=== PATIENT | male | born 1960 | race Caucasian/White ===

== ENCOUNTER → 2017-02-15 | Outpatient (CLI) | payer OTHER ==
[2017-02-15 13:02] LABS: ESTIMATED AVERAGE GLUCOSE 163 mg/dl; HA1C FLAG Normal (Normal)
[2017-02-15 13:25] LABS: ALT/SGPT 73 U/L (12-78); BLOOD UREA NITROGEN 10 mg/dl (7-18); BUN/CREATININE RATIO 11.1 (10-20); CALCIUM 8.7 mg/dl (8.5-10.1); CARBON DIOXIDE 27 mmol/L (21-32); CHLORIDE 107 mmol/L (98-107); CHOLESTEROL 204 mg/dl (0-200); CREATININE 0.89 mg/dl (0.60-1.40); GLUCOSE 148 mg/dl (70-99); POTASSIUM 4.2 mmol/L (3.5-5.1); SODIUM 141 mmol/L (136-145); TRIGLYCERIDES 300 mg/dl (0-150); VERY LOW DENSITY LIPOPROT CALC 60 mg/dl
[2017-02-15 13:29] LABS: ALB/GLOB RATIO 1.1 (0.9-2); ALKALINE PHOSPHATASE 55 U/L (45-117); AST/SGOT 59 U/L (15-37); CHOLESTEROL/HDL RATIO 7.8; HDL CHOLESTEROL 26 mg/dl; LDL CHOLESTEROL CALCULATED 118 mg/dl
== END | disposition home or self-care (01) ==
LOC: C.LABPVFM 07:34
PROVIDERS: ATTEND Family Medicine
DX: E78.5 Hyperlipidemia, unspecified (principal); I10 Essential (primary) hypertension; E11.9 Type 2 diabetes mellitus without complications

== ENCOUNTER 2023-01-12 07:39 | Inpatient (IN) ==
--- NOTE | 2023-01-01 11:27 | Anesthesiology Consultation ---
Date of Service January 01, 2023 Assessment & Plan (1) Encounter for pre-operative examination: Chart Review Chart Review: Acceptable Risk for Surgery and Patient NOT seen in Pre Admission Testing - Check BSG AM DOS -COVID screening: Per PAT nursing assessment on 01/01/23. No known COVID-19 positive contacts or current COVID-19 related symptoms. Travel screen negative. Patient vaccinated for Covid. At surgeon discretion if preop Covid testing being done. History Surgery Operation Date: 01/12/23 10:00 Proposed Procedures p Laparoscopic Sigmoid Colon Resection, Repair Umbilical Hernia - Jono Wilder, Height/Weight Height: 5 ft 10 in Weight: 90.718 kg Allergies Allergy/AdvReac Type Severity Reaction Status Date / Time atorvastatin [From Lipitor] Allergy Unknown LIVER ISSUE Verified 01/01/23 10:26 Medications Home Medications Medication Instructions Recorded Confirmed Last Taken blood-glucose meter (OneTouch #1 ea 04/21/22 12/30/22 Unknown Ultra2 Meter kit) pen needle, diabetic 32 gauge x #100 ea 07/14/22 12/30/22 Unknown 5/32" (BD Ultra-Fine Nancy Pen Needle) blood sugar diagnostic (OneTouch #100 ea 10/19/22 12/30/22 Unknown Ultra Test strips) glimepiride 4 mg tablet 4 mg PO QAM #90 tabs 10/19/22 01/01/23 12/20/22 lancets 33 gauge (OneTouch Delica #100 ea 10/19/22 12/30/22 Unknown Plus Lancet) metformin 1,000 mg tablet 1,000 mg PO BID #180 tabs 10/19/22 01/01/23 12/21/22 triamcinolone acetonide 0.1 % 1 applic topical BID PRN rash #80 10/19/22 01/01/23 Unknown topical cream grams ferrous sulfate 325 mg (65 mg 325 mg PO BID #180 tabs 10/29/22 01/01/23 12/15/22 iron) tablet sodium sul 1.479 gram-potas ch See Rx Instructions PO .COMPLEX 12/07/22 12/30/22 12/22/22 0.188 gram-magnes sul 0.225 gram #24 tabs tablet (Sutab) aspirin 81 mg capsule 81 mg PO QPM 12/15/22 01/01/23 12/15/22 docusate sodium 100 mg tablet 100 mg PO BID 12/15/22 01/01/23 12/15/22 (Stool Softener) cholecalciferol (vitamin D3) 25 25 mcg PO UD 01/01/23 01/01/23 Unknown mcg (1,000 unit) capsule (Vitamin D3) cyanocobalamin (vitamin B-12) 1,000 mcg PO QAM 01/01/23 01/01/23 Unknown 1,000 mcg tablet (Vitamin B-12) levothyroxine 25 mcg tablet 25 mcg PO QAM 01/01/23 01/01/23 Unknown (Synthroid) lisinopril 5 mg tablet 5 mg PO QAM 01/01/23 01/01/23 Unknown omeprazole 20 mg capsule,delayed 20 mg PO QAM 01/01/23 01/01/23 Unknown release pioglitazone 30 mg tablet 30 mg PO QAM 01/01/23 01/01/23 Unknown simvastatin 20 mg tablet 20 mg PO QPM 01/01/23 01/01/23 Unknown Past Medical History Medical History (Updated 01/01/23 @ 11:34 by Nadine Hinton PA-C) Chronic reflux esophagitis Colon cancer Recently diagnosed - reason for upcoming procedure Dyslipidemia HTN (hypertension) Hypothyroid Iron deficiency anemia iron infusion 11/26/2022 Nicotine dependence Type 2 diabetes mellitus Last A1C 5.1 in 10/2022 Past Family History Family History Father Coronary atherosclerosis Cardiovascular disease Heart disease Myocardial infarction Brother Coronary atherosclerosis Cardiovascular disease Myocardial infarction Lung cancer Cancer Throat cancer Mother Diabetes Cancer Brother Cancer Denies family history of Ovarian cancer Prostate cancer Breast cancer Colorectal cancer Past Surgical History Surgical History H/O colonoscopy History of endoscopy Social History Smoking Status: Former smoker tobacco type: smokeless tobacco Do You Dip or Chew Tobacco: Yes (1 CAN PER WEEK AVERAGE/ADVISED NPO BY NURSING) Smoking End Date: A TEENAGER THEN QUIT Hx Alcohol Use: No Hx Substance Use: No substance use type: does not use Lab Results Anesthesia Preop Results Results Anesthesia Widget: WBC 4.08 K/ul (4.8-10.8) L 12/29/22 Hgb 13.6 g/dl (14.0-18.0) L 12/29/22 Hct 41.9 % (42.0-52.0) L 12/29/22 Plt 117 K/uL (130-400) L 12/29/22 Na 141 mmol/L (136-145) 12/29/22 K 4.2 mmol/L (3.5-5.1) 12/29/22 Cl 106 mmol/L (98-107) 12/29/22 CO2 31 mmol/L (21-32) 12/29/22 BUN 14 mg/dl (6-23) 12/29/22 Creat 0.87 mg/dl (0.6-1.4) 12/29/22 Glucose Level 110 mg/dl (70-99(Fasting)) H 12/29/22 PT 11.7 Seconds (9.0-12.0) 11/04/22 PTT 30.7 Seconds (21.0-31.0) 11/04/22 INR 1.1 (0.9-1.1) 11/04/22 Testing Laboratory Results - Mild pancytopenia- stable from previous Electrocardiogram Date: 12/30/22 Findings: + NSR @ (64bpm ) Normal EKG per cardio Other Testing Chest CT 12/28/22= No evidence of metastatic disease within the chest. There is no pericardial effusion. No pneumothorax or pleural effusion is present. There is no consolidation to suggest pneumonia. Several small calcified nodules within the lungs are benign. No suspicious pulmonary nodules are present
[~2023-01-12 07:39] MED LIST: HEPARIN SOD 5,000 UNIT/0.5 ML VIAL SQ SCH; LR 15ML/HR IV SCH; ceFAZolin 2000MG 2,000 MG/15 ML SYR IV SCH
[2023-01-12] MEDS ORDERED: PROPOFOL IV EMULSION 10 MG/ML 20 ML VIAL IV ONE (08:04)
[2023-01-12] MEDS ORDERED: DEXAMETHASONE SOD INJ 4 MG/ML VIAL ONE ×2 (08:04→08:10)
[2023-01-12] MEDS ORDERED: ONDANSETRON INJ 2 MG/ML 2 ML VIAL ONE (08:04)
[2023-01-12] MEDS ORDERED: LIDOCAINE 2% 2 ML VIAL/AMP(20MG/ML) INFIL ONE (08:04)
[2023-01-12] MEDS ORDERED: MIDAZOLAM HCL 1 MG/ML 2ML VIAL ONE (08:05)
[2023-01-12] MEDS ORDERED: SUGAMMADEX SODIUM 200 MG/2 ML VIAL IV ONE (08:05)
[2023-01-12] MEDS ORDERED: ROCURONIUM BROMIDE 10 MG/ML 5 ML VIAL IV ONE ×6 (08:05→08:50)
[2023-01-12] MEDS ORDERED: fentaNYL citrate PF 100 MCG/2 ML VIAL ONE ×2 (08:05→10:34)
[2023-01-12] MEDS ORDERED: BUPIVACAINE/EPINEPHRINE 0.5% MPF 1:200,000 30 ML VIAL ONE (09:16)
[2023-01-12] MEDS ORDERED: SCOPOLAMINE 1 MG TDSY TD ONE ×2 (09:50→09:51)
[2023-01-12] MEDS ORDERED: ATROPINE SULFATE 0.1 MG/ML 10ML SYR IV PRN (09:52)
[2023-01-12] MEDS ORDERED: KETOROLAC 30 MG/ML VIAL IV PRN (09:52)
[2023-01-12] MEDS ORDERED: ONDANSETRON INJ 2 MG/ML 2 ML VIAL IV PRN (09:52)
[2023-01-12] MEDS ORDERED: PROMETHAZINE HCL 6.25 MG in SODIUM CHLORIDE 0.9% 50 ML IV PRN (09:52)
--- NOTE | 2023-01-12 10:01 | History & Physical Bridge Note ---
Date of Service January 12, 2023 History & Physical Bridge Note I have examined the patient, reviewed the History & Physical and in the interval since the performance of the History & Physical I have noted the following changes of clinical significance: no changes noted
[2023-01-12] MEDS ORDERED: KETAMINE 50 MG/5 ML SYRINGE ONE (10:33)
[2023-01-12] MEDS ORDERED: MoRPHine SULFATE 2 MG/ML CARP ONE (12:42)
--- NOTE | 2023-01-12 13:04 | Operative Report ---
PG Post Operative Report Pre & Post Diagnosis Operation Date: 01/12/23 10:00 Pre-Op Diagnosis: Colon Cancer, Umbilical Hernia Post-Op Diagnosis: Colon Cancer, Umbilical Hernia I identified the patient and participated in the time-out.: Yes Procedure Operation Date: 01/12/23 10:00 Actual Procedures p Laparoscopic Sigmoid Colon Resection, Repair Umbilical Hernia(Not Applicable) - Jono Wilder DO Surgeon Jono Wilder DO Senior Director Creative Services Tamika'MI chambers Estimated Blood Loss 200 Findings Consistent with Post-Op Diagnosis Specimens sigmoid colon Description of Procedure After informed consent was obtained the patient was taken to the operating room and placed in supine position. After successful intubation a Grey catheter was placed and the patient was placed in a low lithotomy position. Both arms were tucked. The abdomen was shaved and sterilely prepped and draped in usual fashion. I began by making a curvilinear infraumbilical incision with a 15 blade scalpel. This was carried down through the soft tissue using cautery. The fascia was skeletonized. A Sonal clamp was used to come around the superior aspect of the umbilicus. The umbilical stalk was detached exposing a 1.5 cm hernia defect. 0 Vicryl stay sutures were placed on either side of the fascial defect. Peritoneum was elevated with hemostats and incised under direct vision using Metzenbaum scissor. A finger sweep was performed. A 12 mm Cunningham trocar was placed and the abdomen was insufflated to 18 mmHg. Laparoscope was inserted and the abdomen examined in 360 degrees. No gross abnormalities were identified. A right lower quadrant 12 mm trocar which would later be converted to a 15 mm trocar was placed as well as a right mid abdominal 5 mm trocar and eventually a left lower quadrant 5 mm trocar. The patient was placed in steep Trendelenburg position. I was able to readily identify the tattoo markings placed by GI. I began by using the harmonic scalpel to divide the white line of Toldt. We carried this up almost to the splenic flexure and inferiorly over the pelvic peritoneal reflection. Once I had fully mobilized the sigmoid colon I was then able to make a small window in the mesentery 4 to 5 cm distal to the distal-most tattoo aleah. BISMARK 60 mm black cartridge stapler was used to transect the rectosigmoid colon. I then used the harmonic scalpel to take down the mesentery staying as low as possible to incorporate as many lymph nodes as possible. We carried this up to well above the proximal most tattoo aleah. We t hen extended the left lower quadrant incision including the fascia and delivered the specimen out through it. A bowel clamp was placed on viable bowel well proximal to the mass itself. The bowel was divided and passed off to a back table. I would later check the specimen to ensure that we had adequate margins in both directions which we did. We marked the distalmost aspect of the specimen with a silk stitch. We then hand sewed 2-0 nylon for a pursestring. We used sizers to estimate the size of the lumen of the colon and placed a 31 mm anvil and secured it using the pursestring. This was then placed the colon back into the abdominal cavity. At this point we changed our gloves. I closed the fascial defect using 0 PDS in running fashion. I then re-insufflated the abdomen. The anvil and the colon laid nicely over the pelvic brim with no tension. We used sizers to come in through the rectum into the stump. Eventually we placed the circular handle in through the rectum into the stump as well. The spike was deployed anterior to the staple line. The anvil was connected to the handle and they were secured together and fired creating a circular anastomosis. Both donuts were intact. We sent the distal 1 as additional distal margin. I then re-insufflated the anastomosis under water to ensure it was airtight. There was no evidence of any leaks. We thoroughly irrigated the pelvis. There was adequate hemostasis. A 10 flat Oscar-Payne drain was placed into the pelvis and brought out through one of the trocar sites and secured to the skin using 0 PDS. Final look around the abdomen showed no other abnormalities. The trocars were all removed and the abdomen desufflated. The umbilical hernia was repaired using #1 Ethibond in simple erupted fashion. The umbilical stalk was reattached using 0 Vicryl. The wounds were all thoroughly irrigated. The larger wound was closed using 3-0 Vicryl forvdeep layers and 4 Monocryl for skin. The smaller trocar sites were closed using 4-0 Monocryl. Marcaine with epinephrine were injected around them for postoperative analgesia. A drain sponge was placed and Dermabond glue usedon the trocar sites and benzoin /Steri-Strips on the larger incision followed by gauze and tape. The patient was awakened extubated and transferred to recovery in stable condition. My nurse practitioner was present through the entire case and was instrumental in providing exposure running the camera assisting with the anastomosis wound closure and dressing placement. I attest to the content of the Intraoperative Record and any orders documented therein. Any exceptions are noted below.
[2023-01-12] MEDS: HYDROmorphone INJ 1 MG/ML SYRINGE IV PRN ×2 (13:11→13:16)
[2023-01-12] MEDS ORDERED: SODIUM CHLORIDE 0.9% 50 ML BAG ONE (13:27)
[2023-01-12] MEDS ORDERED: PROMETHAZINE HCL INJ 25 MG/ML 1 ML VIAL ONE (13:27)
--- NOTE | 2023-01-12 13:52 | Anesthesiology Progress Note ---
Date of Service January 12, 2023 Anesthesia Post Procedure Vital Signs Vital Signs: Temp Pulse Pulse Resp BP Pulse Ox O2 Del Method 01/12/23 13:49 84 12 119/73 98 Nasal Cannula 01/12/23 13:40 37 C 82 12 117/70 99 Nasal Cannula 01/12/23 13:30 80 17 109/69 97 Nasal Cannula 01/12/23 13:20 78 15 121/55 L 99 Oxymask 01/12/23 13:10 90 17 132/74 99 Oxymask 01/12/23 13:00 36.3 C L 103 H 20 102/77 96 Oxymask 01/12/23 08:26 36.5 C 66 20 141/76 H 98 Room Air O2 Flow Rate 01/12/23 13:49 2 01/12/23 13:40 2 01/12/23 13:30 2 01/12/23 13:20 6 01/12/23 13:10 6 01/12/23 13:00 6 01/12/23 08:26 Pain Intensity Abdomen: Pain Intensity: 4 Transfer of Care Handoff Completed per policy Notes Mental Status: alert / awake / arousable Patient Amnestic to Procedure: Yes Nausea / Vomiting: adequately controlled Pain: adequately controlled Airway Patency, RR, SpO2: stable & adequate BP & HR: stable & adequate Hydration State: stable & adequate Anesthetic Complications: no major complications apparent
[2023-01-12] MEDS ORDERED: PROMETHAZINE HCL 12.5 MG in SODIUM CHLORIDE 0.9% 50 ML IV PRN (14:31)
[2023-01-12] MEDS ORDERED: MoRPHine SULFATE 4 MG/ML 1 ML CARP\\VIAL IV PRN (14:31)
[2023-01-12] MEDS ORDERED: PHARMACY GLYCEMIC MGMT CONSULT PRN (14:31)
[2023-01-12] MEDS: LACTATED RINGER'S 1,000 ML IV SCH ×2 (15:02→23:01)
[2023-01-12] MEDS ORDERED: FAMOTIDINE 20 MG in SYRINGE 3 ML IV PRN (15:11)
--- NOTE | 2023-01-12 15:13 | Hospitalist Consultation ---
Date of Consultation January 12, 2023 Assessment & Plan (1) Status post laparoscopic-assisted sigmoidectomy: -Perioperative abx, DVT PPX, pain control, and IV fluids per the primary team -Patient is currently stable pos-top -Agree with IV fluids while NPO for hydration -No signs of acute infection at this time -Agree with am labs tomorrow, we will review -Adding prn IV famotidine daily for indigestion and stress ulcer ppx -Thank you for allowing us to participate in the care of this patient, feel free to reach out with any questions or concerns -Medicine will continue to follow (2) HTN (hypertension): -Currently stable -Agree with holding lisinopril for now to prevent hypotension -Can resume when hemodynamically stable and if renal function is stable (3) Colon cancer: -Reason for sigmoidectomy today (4) H/O thrombocytopenia: -Has been ongoing for 20 + years, follows with hematology -No signs of active bleeding -Follow am CBC (5) Diabetes mellitus type 2, uncontrolled: -Pharmacy glycemic control consult already placed with orders in -Continue to follow Pharmacy's recommendations (6) Hypothyroid: -Continue levothyroxine Plan The patient was discussed with Dr. Tompkins at the time of the consult Supervising Physician Co-Signing Physician Notes Patient seen and examined, chart reviewed, case discussed with Serge and I agree with the assessment and plan as above except as otherwise noted Labs and images reviewed Lillie is a 62-year-old male s/p lap assisted sigmoidectomy with a past medical history of DM 2, hypothyroidism, anemia, pancytopenia, GERD who underwent surgical revision for a well differentiated adenocarcinoma. We are consulted for assist with postoperative management. At time bedside visit he is hemodynamically stable, has had transient mild hypotension but appears near euvolemic to slightly volume down. Lungs are clear, heart rate is regular. Agree with assessment and plan above including IV fluids, car prophylaxis, and continuing to hold antihypertensives at this time. Patient's pancytopenia is stable and at baseline, follow clinically for signs of bleeding. Do not recommend any type of threshold driven platelet transfusion at this time, no indication for blood transfusion at this time. Agree with assessment/plan by Serge Wilder above History of Present Illness Reason for Consultation: Post-op medical management Requesting Physician: Jono Wilder DO Attending Physician: Dr. Hawk Tompkins History of Present Illness Logan is a 62 year old male with a PMH significant for DM II, hypothyroidism, pancytopenia, iron deficiency anemia, and GERD who presented to the [facility] OR on 01/12 for scheduled Laparoscopic Sigmoid Colon Resection and Repair of Umbilical Hernia with Jono Wilder DO. Per review of the patient's vitals, he has been stable on 2L NC post-op and otherwise stable. Per the operative report, EBL was l isted as "200", anesthesia type was not listed, and there were no reported intraoperative complications. Per chart review, the patient underwent the sigmoid colon resection due to recent biopsy results of his colon mass diagnosed as "Well differentiated adenocarcinoma.". At the time of the exam the patient was sleeping comfortably in bed with his family sitting bedside. The patient wakes easily and states that his only complaint at this time is being tired. He did not take any medications this am prior to arriving. He is currently without abdominal pain at rest. He denies current fever, chills, chest pain, SOB, abd pain, nausea, vomiting, diarrhea. Please refer to Dr. Tompkins's attestation for any changes to the treatment plan Allergies Allergy/AdvReac Type Severity Reaction Status Date / Time atorvastatin [From Lipitor] Allergy Unknown LIVER ISSUE Verified 01/12/23 08:21 Home Medications Medication Instructions Recorded Confirmed Type blood-glucose meter (Nirvanixuch #1 ea 04/21/22 12/30/22 Rx Ultra2 Meter kit) pen needle, diabetic 32 gauge x #100 ea 07/14/22 12/30/22 Rx 5/32" (BD Ultra-Fine Nancy Pen Needle) glimepiride 4 mg tablet 4 mg PO QAM #90 tabs 10/19/22 01/12/23 Rx lancets 33 gauge (OneTouch Delica #100 ea 10/19/22 12/30/22 Rx Plus Lancet) metformin 1,000 mg tablet 1,000 mg PO BID #180 tabs 10/19/22 01/12/23 Rx triamcinolone acetonide 0.1 % 1 applic topical BID PRN rash #80 10/19/22 01/12/23 Rx topical cream grams ferrous sulfate 325 mg (65 mg 325 mg PO BID #180 tabs 10/29/22 01/12/23 Rx iron) tablet sodium sul 1.479 gram-potas ch See Rx Instructions PO .COMPLEX 12/07/22 01/12/23 Rx 0.188 gram-magnes sul 0.225 gram #24 tabs tablet (Sutab) aspirin 81 mg capsule 81 mg PO QPM 12/15/22 01/12/23 History cholecalciferol (vitamin D3) 25 25 mcg PO UD 01/01/23 01/12/23 History mcg (1,000 unit) capsule (Vitamin D3) cyanocobalamin (vitamin B-12) 1,000 mcg PO QAM 01/01/23 01/12/23 History 1,000 mcg tablet (Vitamin B-12) levothyroxine 25 mcg tablet 25 mcg PO QAM 01/01/23 01/12/23 History (Synthroid) lisinopril 5 mg tablet 5 mg PO QAM 01/01/23 01/12/23 History omeprazole 20 mg capsule,delayed 20 mg PO QAM 01/01/23 01/12/23 History release pioglitazone 30 mg tablet 30 mg PO QAM 01/01/23 01/12/23 History simvastatin 20 mg tablet 20 mg PO QPM 01/01/23 01/12/23 History blood sugar diagnostic (OneTouch #100 ea 01/06/23 Rx Ultra Test strips) oxycodone-acetaminophen 5 mg-325 1 - 2 tab PO .q4-6h PRN pain, for 01/15/23 Rx mg tablet (Percocet) initial therapy, max 6 tabs per day #15 tabs ciprofloxacin HCl 500 mg tablet 500 mg PO BID 4 days #8 tabs 01/19/23 Rx (Cipro) Patient History Medical History (Updated 01/12/23 @ 15:45 by Serge Wilder PA-C) Chronic reflux esophagitis Colon cancer Recently diagnosed - reason for upcoming procedure Dyslipidemia HTN (hypertension) Hypothyroid Iron deficiency anemia iron infusion 11/26/2022 Nicotine dependence Type 2 diabetes mellitus Last A1C 5.1 in 10/2022 Surgical History (Updated 01/13/23 @ 08:22 by Jono Wilder DO) H/O colonoscopy History of endoscopy S/P colon resection (01/12/23) Laparoscopic Sigmoid Colon Resection, Repair Umbilical Hernia(Not Applicable) - Jono Wilder DO Family History Father Coronary atherosclerosis Cardiovascular disease Heart disease Myocardial infarction Brother Coronary atherosclerosis Cardiovascular disease Myocardial infarction Lung cancer Cancer Throat cancer Mother Diabetes Cancer Brother Cancer Denies family history of Ovarian cancer Prostate cancer Breast cancer Colorectal cancer Social History (Updated 12/30/22 @ 09:30 by Mahsa Smith RN) Smoking Status: Former smoker Tobacco Type: Smokeless Tobacco (Dip or Chew) Age Started Using Tobacco: 18; Second Hand Exposure: Yes (in the past); Do You Dip or Chew Tobacco: Yes; Hx Alcohol Use: No Hx Substance Use: No Preferred Language: Japanese Communication Ability: Effective Visual Impairment: Limited Fibreglass Laminator Required: No Beliefs That Will Affect Care: None marital status: Current Living Situation: Spouse current occupational status: employed current occupation: Machine Shop Specialist How many Children do You have: 2 Feels Safe at Home: Yes Diet: diabetic caffeine: Yes (Diet soda and coffee ) Dental Care, Regularly: No Physical Activity Frequency: Daily Seatbelt Use: always Sunscreen Use: Yes Assistive Devices: Glasses Physical Exam Physical Exam: Physical Exam: General: In no acute distress, stated age, non-toxic appearing HEENT: Normocephalic, atraumatic, no scleral icterus, pupils around round, symmetrical, and reactive to light, dry mucus membranes, trachea midline, no thyromegaly Chest/Pulm: No respiratory distress, symmetrical chest expansion, clear breath sounds throughout Cardiac: RRR, no murmurs noted Abdomen: Mildly distended, surgical sites noted at the umbilicus and lower a bdomen appear intact and without signs of drainage, drain is in place and is without signs of infection,, hypoactive bowel sounds, soft, tender to palpation in the LLQ but otherwise non-tender : Grey cath is in place and draining clear, yellow urine Musculoskeletal: Symmetrical and without signs of acute trauma, upper and lower extremities with full ROM, no atrophy, spasticity, or flaccidity Extremities: Radial, dorsalis pedis, and posterior tibial pulses are intact and symmetrical, no edema noted in the BL LE's Skin: As described above Neuro: Alert and oriented to person, place, month, year, and president, no focal defects, no tremors noted Psych: Fatigued, No acute distress, calm and cooperative during the exam Results & Data Results & Data Vital Signs (Past 12 Hours) Vital Signs Temp Pulse Pulse Pulse Resp BP Pulse Ox 01/12/23 14:30 36.5 C 75 14 105/66 96 01/12/23 14:15 79 14 114/67 99 01/12/23 14:00 82 13 117/67 98 01/12/23 13:49 84 12 119/73 98 01/12/23 13:40 37 C 82 12 117/70 99 01/12/23 13:30 80 17 109/69 97 01/12/23 13:20 78 15 121/55 L 99 01/12/23 13:10 90 17 132/74 99 01/12/23 13:00 36.3 C L 103 H 20 102/77 96 01/12/23 08:26 36.5 C 66 20 141/76 H 98 O2 Del Method O2 Flow Rate 01/12/23 14:30 Nasal Cannula 2 01/12/23 14:15 Nasal Cannula 2 01/12/23 14:00 Nasal Cannula 2 01/12/23 13:49 Nasal Cannula 2 01/12/23 13:40 Nasal Cannula 2 01/12/23 13:30 Nasal Cannula 2 01/12/23 13:20 Oxymask 6 01/12/23 13:10 Oxymask 6 01/12/23 13:00 Oxymask 6 01/12/23 08:26 Room Air Laboratory Results Abnormal lab results 01/12/23 01/12/23 Range/Units 08:11 13:04 POC Glucose 105 H 129 H (70-99) mg/dl PG Care Time/CCT Total # of Minutes Spent Total Time Spent with Patient: Total time spent is greater than 50% in coordination of care (as documented) at patient's floor/unit and/or counseling patient: [place] [address] IN/OBS CONSULT LVL 4,60M Patient Type New Medical Decision Making Moderate Complexity Diagnoses Status post laparoscopic-assisted sigmoidectomy Z90.49 HTN (hypertension) I10 Colon cancer C18.9 H/O thrombocytopenia Z86.2 Diabetes mellitus type 2, uncontrolled E11.65 Hypothyroid E03.9
[2023-01-12] MEDS ORDERED: GLUCAGON FOR INJ 1 MG VIAL IM PRN (15:15)
[2023-01-12] MEDS ORDERED: GLUCOSE 40% GEL 15 GM TUBE PO PRN (15:15)
[2023-01-12] MEDS ORDERED: DEXTROSE 50% 50 ML SYRINGE IV PRN (15:15)
[2023-01-12] MEDS ORDERED: CARBOHYDRATES FOR HYPOGLYCEMIA PO PRN (15:15)
[2023-01-12] MEDS ORDERED: GLUCOSE 10 TAB/TUBE PO PRN (15:15)
--- NOTE | 2023-01-12 15:20 | Pharmacy Report ---
Pharmacy Glycemic Short Note 2 - Date of Service January 12, 2023 - Glycemic Short BSG Results (Last 24 hours): 01/12/23 01/12/23 08:11 13:04 POC Glucose 105 H 129 H OUTPATIENT ANTIDIABETIC REGIMEN: * Metformin 1000 mg PO BID * Glimepiride 4 mg PO AM * Pioglitazone 30 mg PO AM * HbA1c: 5.1% (10/14/22) ASSESSMENT: * 62 yo M admitted on 01/12/23 following a sigmoid colon resection and hernia repair. Pharmacy has been consulted to assist with inpatient glycemic management. Patient is a well controlled Type 2 diabetic as an outpatient. Please refer to outpatient regimen and most recent HbA1c above. * Preop BSG 105 mg/dL. Postop BSG is 129 mg/dL. * Received 12 mg of IV dexamethasone perioperatively. Currently NPO. * Will not order any basal insulin at this time given postop BSG and NPO status. Starting Novolog based on weight/stress of 2. PLAN FOR INPATIENT GLYCEMIC CONTROL: * Hold outpatient oral diabetes medications * Basal insulin * None * Bolus insulin * NovoLog per scale ACHS or Q6hrs while NPO * Goal Range: Low 110 mg/dL - High 140 mg/dL * Correction Factor: 25 mg/dL/unit * Nutritional / Prandial insulin per carb ratio of 1 unit per 8 grams CHO consumed
[2023-01-12] MEDS ORDERED: LANTUS PER UNIT CHARGE SC ONE (15:30)
[2023-01-12] MEDS: ACETAMINOPHEN 1,000 MG/100 ML VIAL IV SCH ×2 (15:46→23:01)
[2023-01-12] MEDS: CHECK SCOPOLAMINE PATCH PLACEMENT SCH (15:46)
[2023-01-12] MEDS ORDERED: INSULIN ASPART PER UNIT CHARGE SC SCH (16:30)
[2023-01-12] MEDS ORDERED: Nursing to Pharmacy Communication SCH (17:00)
[2023-01-12] MEDS: MoRPHine SULFATE 2 MG/ML CARP IV PRN (17:30)
[2023-01-12] MEDS: ONDANSETRON INJ 2 MG/ML 2 ML VIAL IV PRN (17:30)
[2023-01-12] MEDS ORDERED: ceFAZolin 2000MG 2,000 MG/15 ML SYR IV ONE (18:00)
[2023-01-12] MEDS: INSULIN ASPART PER UNIT CHARGE SC SCH (18:29)
[2023-01-13] MEDS: CHECK SCOPOLAMINE PATCH PLACEMENT SCH ×3 (00:05→15:17)
[2023-01-13] MEDS: INSULIN ASPART PER UNIT CHARGE SC SCH ×4 (00:08→18:10)
[2023-01-13] MEDS: MoRPHine SULFATE 2 MG/ML CARP IV PRN (05:59)
[2023-01-13] MEDS: ONDANSETRON INJ 2 MG/ML 2 ML VIAL IV PRN ×2 (05:59→13:21)
[2023-01-13] MEDS: LACTATED RINGER'S 1,000 ML IV SCH (06:05)
[2023-01-13] MEDS: ACETAMINOPHEN 1,000 MG/100 ML VIAL IV SCH ×3 (06:28→23:47)
[2023-01-13 07:59] LABS: Basophils # (auto) 0.03 K/uL (0-0.2); Basophils % (auto) 0.3 %; Eosinophils # (auto) 0.01 K/uL (0-0.50); Eosinophils % (auto) 0.1 %; Hematocrit (blood only) 36.7 % (42.0-52.0); Hemoglobin 12.1 g/dl (14.0-18.0); Immature Granulocytes # (auto) 0.03 K/uL (0.01-0.20); Immature Granulocytes % (auto) 0.3 %; Lymphocytes # (auto) 1.09 K/uL (1.2-3.4); Lymphocytes % (auto) 11.5 %; Mean Corpuscular Volume 94.1 fL (80.0-100.0); Mean Platelet Volume 10.2 fL (9.4-12.4); Monocytes # (auto) 0.61 K/uL (0.11-0.59); Monocytes % (auto) 6.4 %; Neutrophils # (auto) 7.74 K/uL (1.40-6.50); Neutrophils % (auto) 81.4 %; Platelet Count 114 K/uL (130-400); RDW Coefficient of Variation 13.8 % (11.5-14.5); RDW Standard Deviation 47.1 fL (36.4-46.3); White Blood Count 9.51 K/ul (4.8-10.8)
[2023-01-13] MEDS ORDERED: HYDROmorphone INJ 0.5 MG/0.5 ML SYR IM PRN (08:17)
[2023-01-13 08:20] LABS: BUN Creatinine Ratio 13.9 (10-20); Calcium 8.5 mg/dl (8.6-10.3); Creatinine Clr Calc Pharmacy 118.4 ml/min; Est GFR (African American) 114.3 ml/min; Est GFR (Non-African American) 98.6 ml/min
[2023-01-13] MEDS ORDERED: HYDROmorphone INJ 0.5 MG/0.5 ML SYR IV PRN ×2 (08:21→09:08)
--- NOTE | 2023-01-13 08:23 | Surgery Progress Note ---
Date of Service January 13, 2023 Assessment & Plan (1) S/P colon resection: Plan: Postoperative day #1 Doing as expected We will remove his Grey catheter We will start Lovenox for DVT prevention Stay on ice chips only for now We will change morphine to Dilaudid to see if this helps with his nausea Admission and Anticipated Discharge Date Admission Date: January 12, 2023 Subjective Patient seen. Doing okay. Had a fair amount of nausea last night and some expected discomfort this morning. The Grey catheter is also bothering him Physical Exam Physical Exam: Alert. No acute distress Abdomen with expected incisional tenderness. SANDRA drain with serosanguineous fluid Results & Data Vital Signs (Past 12 Hours) Vital Signs Temp Pulse Resp BP Pulse Ox O2 Del Method O2 Flow Rate 01/13/23 07:47 36.6 C 69 18 108/61 94 Room Air 01/13/23 03:17 36.5 C 68 16 118/67 99 Nasal Cannula 1 01/12/23 21:00 Nasal Cannula 2 01/12/23 23:48 36.8 C 77 16 114/68 97 Nasal Cannula 1 PG Care Time/CCT Total # of Minutes Spent Total Time Spent with Patient: Total time spent is greater than 50% in coordination of care (as documented) at patient's floor/unit and/or counseling patient: Coding Level of Care Code 94664 Post Operative Follow-Up Diagnoses S/P colon resection Z90.49
[2023-01-13] MEDS: LEVOTHYROXINE SODIUM 25 MCG TABLET PO SCH (08:27)
[2023-01-13] MEDS: ENOXAPARIN INJ 40 MG/0.4 ML SYR SQ SCH (08:27)
--- NOTE | 2023-01-13 08:49 | Hospitalist Progress Note ---
Date of Service January 13, 2023 Assessment & Plan (1) Status post laparoscopic-assisted sigmoidectomy: Plan: POD# 1 s/p Laparoscopic Sigmoid Colon Resection, Repair Umbilical Hernia(Not Applicable) - Jono Wilder DO. EBL 200cc. Pathology from 12/22 w/ well differentiated adenocarcinoma WBC wnl, afebrile Hgb 13.6--> 12.1, acute blood loss anemia from surgery as well as dilutional from IVF post-op Ice chips/sips per primary service for now Added Protonix daily given omeprazole use at home and nausea reported. Pepcid available prn as well Lovenox SQ added for DVT prophylaxis Asked RN to message primary service about continuing maintenance IVF while NPO Hospitalist service will follow along, monitor labs on repeat. 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 Now w/ adenocarcinoma s/p resection CBC stable on repeat (5) Diabetes mellitus type 2, uncontrolled: Plan: A1c 5.1 most recent check -- WELL CONTROLLED (on metformin 1gm BID, pioglitazone 30mg, glimepiride 4mg daily at home) Pharmacy glycemic control consult already placed with orders in -Continue to follow Pharmacy's recommendations May need to add dextrose to IVF if remaining NPO past today/repeat blood sugars -- currently acceptable (6) Hypothyroid: Plan: -Continue levothyroxine 25mcg Last TSH in system slightly elevated -- consider repeating w/ PCP after discharge/adjustment if needed Plan Thank you for allowing hospitalist service to participate in the care of Mr Mills. Hospitalist service will follow along - please call with any urgent questions/concerns. Admission and Anticipated Discharge Date Admission Date: January 12, 2023 Supervising Physician Co-Signing Physician Notes The patient was not seen by me. The chart was reviewed. Case discussed with ADAM Wyatt. Agree with assessment and plan Subjective Patient evaluated this morning. Pain improving since surgery switched from morphine to diluadid. Less discomfort since davis removed this morning, but pain to abdomen still present. He is on omeprazole for reflux at home and reporting nausea but no emesis. Discussed I ordered protonix and we will monitor. No family hx colon ca, he reports he brought anemia up to family doctor, Dr Sanchez, and she was all over it and found current issue. Pathology pending. Did discussed possible SSRI/SNRI, possible remeron for mood appetite eventually but will hold off for now. No fever/chills, no chest pain/shortness of breath. Not passing gas but starting to have bowel sounds. SANDRA drain reportedly changed this morning. Remaining on ice chips/sips. Asked RN to change umbilical dressing for drainage at present. Questions/concerns addressed at this time. Review of Systems Review of Systems: All systems reviewed & are unremarkable except as noted in HPI & below Physical Exam Physical Exam: General: WD male sitting up in bed, NAD but mildly uncomfortable appearing with positional changes to abdomen HEENT: head normocephalic, atraumatic, mm slightly dry, trachea midline, no deviation Resp: CTA, slightly diminished in the bases, no w/c/r, on room air CV: RRR, no significant m/r/g, no pitting edema/calf tenderness GI: abdominal incisions noted, dressings in place, scant serosanguineous drainage around umbilicus, +BS present, slightly hypoactive, tender to palpation around incisions, worse in RLQ, no rigidity, voluntary guarding noted : no davis MSK/Neuro: no focal deficit, follows commands, no slurred speech Psych: AOx3, cooperative with exam, noted flat affect/depressed at times, no SI/HI noted Results & Data Results & Data Vital Signs (Past 12 Hours) Vital Signs Temp Pulse Resp BP Pulse Ox O2 Del Method O2 Flow Rate 01/13/23 07:47 36.6 C 69 18 108/61 94 Room Air 01/13/23 03:17 36.5 C 68 16 118/67 99 Nasal Cannula 1 01/12/23 21:00 Nasal Cannula 2 01/12/23 23:48 36.8 C 77 16 114/68 97 Nasal Cannula 1 Laboratory Results 01/13/23 01/13/23 01/13/23 Range/Units 07:35 07:35 05:50 WBC 9.51 (4.8-10.8) K/ul RBC 3.90 L (4.70-6.10) M/uL Hgb 12.1 L (14.0-18.0) g/dl Hct 36.7 L (42.0-52.0) % MCV 94.1 (80.0-100.0) fL MCH 31.0 (25.0-34.0) pg MCHC 33.0 (32.0-36.0) g/dL RDW Std Deviation 47.1 H (36.4-46.3) fL RDW Coeff of Humberto 13.8 (11.5-14.5) % Plt Count 114 L (130-400) K/uL MPV 10.2 (9.4-12.4) fL Immature Gran % (Auto) 0.3 % Neut % (Auto) 81.4 % Lymph % (Auto) 11.5 % Wright % (Auto) 6.4 % Eos % (Auto) 0.1 % Baso % (Auto) 0.3 % Neut # (Auto) 7.74 H (1.40-6.50) K/uL Lymph # (Auto) 1.09 L (1.2-3.4) K/uL Wright # (Auto) 0.61 H (0.11-0.59) K/uL Eos # (Auto) 0.01 (0-0.50) K/uL Baso # (Auto) 0.03 (0-0.2) K/uL Immature Gran # (Auto) 0.03 (0.01-0.20) K/uL Sodium 139 (136-145) mmol/L Potassium 4.0 (3.5-5.1) mmol/L Chloride 105 (98-107) mmol/L Carbon Dioxide 29 (21-32) mmol/L Anion Gap 5 (3-11) BUN 10 (6-23) mg/dl Creatinine 0.72 (0.6-1.4) mg/dl Est Cr Clr Drug Dosing 118.4 ml/min Est GFR ( Amer) 114.3 ml/min Est GFR (Non-Af Amer) 98.6 ml/min BUN/Creatinine Ratio 13.9 (10-20) Glucose 139 H (70-99(Fasting)) mg/dl POC Glucose 118 H (70-99) mg/dl Calcium 8.5 L (8.6-10.3) mg/dl 01/12/23 01/12/23 01/12/23 Range/Units 23:42 18:05 13:04 WBC (4.8-10.8) K/ul RBC (4.70-6.10) M/uL Hgb (14.0-18.0) g/dl Hct (42.0-52.0) % MCV (80.0-100.0) fL MCH (25.0-34.0) pg MCHC (32.0-36.0) g/dL RDW Std Deviation (36.4-46.3) fL RDW Coeff of Humberto (11.5-14.5) % Plt Count (130-400) K/uL MPV (9.4-12.4) fL Immature Gran % (Auto) % Neut % (Auto) % Lymph % (Auto) % Wright % (Auto) % Eos % (Auto) % Baso % (Auto) % Neut # (Auto) (1.40-6.50) K/uL Lymph # (Auto) (1.2-3.4) K/uL Wright # (Auto) (0.11-0.59) K/uL Eos # (Auto) (0-0.50) K/uL Baso # (Auto) (0-0.2) K/uL Immature Gran # (Auto) (0.01-0.20) K/uL Sodium (136-145) mmol/L Potassium (3.5-5.1) mmol/L Chloride (98-107) mmol/L Carbon Dioxide (21-32) mmol/L Anion Gap (3-11) BUN (6-23) mg/dl Creatinine (0.6-1.4) mg/dl Est Cr Clr Drug Dosing ml/min Est GFR ( Amer) ml/min Est GFR (Non-Af Amer) ml/min BUN/Creatinine Ratio (10-20) Glucose (70-99(Fasting)) mg/dl POC Glucose 125 H 172 H 129 H (70-99) mg/dl Calcium (8.6-10.3) mg/dl PG Care Time/CCT Total # of Minutes Spent Total Time Spent with Patient: Total time spent is greater than 50% in coordination of care (as documented) at patient's floor/unit and/or counseling patient: Coding Level of Care Code 71395 SUB INP/OBS CARE 3/50MIN Diagnoses Status post laparoscopic-assisted sigmoidectomy Z90.49 HTN (hypertension) I10 Colon cancer C18.9 H/O thrombocytopenia Z86.2 Diabetes mellitus type 2, uncontrolled E11.65 Hypothyroid E03.9
[2023-01-13] MEDS ORDERED: FAMOTIDINE 20 MG in SYRINGE 3 ML IV SCH (09:00)
[2023-01-13] MEDS ORDERED: FAMOTIDINE 20 MG in SYRINGE 3 ML IV PRN (09:35)
[2023-01-13] MEDS: D5W AND 1/2NSS 1,000 ML IV SCH ×2 (09:42→17:45)
[2023-01-13 09:53] LABS: Magnesium 1.9 mg/dl (1.7-2.4)
[2023-01-13] MEDS: HYDROmorphone INJ 0.5 MG/0.5 ML SYR IV PRN ×2 (09:54→14:41)
[2023-01-13] MEDS ORDERED: MAGNESIUM SULFATE / D5W 1 GM/100 ML BAG IV ONE (11:00)
[2023-01-13] MEDS: PANTOprazole 40 MG in SYRINGE 0 ML IV SCH (11:22)
[2023-01-14] MEDS: INSULIN ASPART PER UNIT CHARGE SC SCH ×5 (00:09→20:48)
[2023-01-14] MEDS: CHECK SCOPOLAMINE PATCH PLACEMENT SCH ×4 (00:16→23:17)
[2023-01-14] MEDS: D5W AND 1/2NSS 1,000 ML IV SCH ×3 (01:37→22:58)
[2023-01-14] MEDS: HYDROmorphone INJ 0.5 MG/0.5 ML SYR IV PRN ×3 (01:40→15:01)
[2023-01-14] MEDS: ONDANSETRON INJ 2 MG/ML 2 ML VIAL IV PRN (05:00)
[2023-01-14] MEDS: ACETAMINOPHEN 1,000 MG/100 ML VIAL IV SCH ×3 (06:27→22:58)
[2023-01-14 07:20] LABS: Basophils # (auto) 0.03 K/uL (0-0.2); Basophils % (auto) 0.3 %; Eosinophils # (auto) 0.03 K/uL (0-0.50); Eosinophils % (auto) 0.3 %; Hematocrit (blood only) 35.4 % (42.0-52.0); Hemoglobin 11.8 g/dl (14.0-18.0); Immature Granulocytes # (auto) 0.02 K/uL (0.01-0.20); Immature Granulocytes % (auto) 0.2 %; Lymphocytes # (auto) 1.05 K/uL (1.2-3.4); Lymphocytes % (auto) 10.8 %; Mean Corpuscular Hemoglobin 30.8 pg (25.0-34.0); Mean Corpuscular Hgb Conc 33.3 g/dL (32.0-36.0); Mean Corpuscular Volume 92.4 fL (80.0-100.0); Monocytes # (auto) 0.62 K/uL (0.11-0.59); Monocytes % (auto) 6.4 %; Neutrophils # (auto) 8.01 K/uL (1.40-6.50); Platelet Count 116 K/uL (130-400); RDW Coefficient of Variation 13.7 % (11.5-14.5); RDW Standard Deviation 46.6 fL (36.4-46.3); Red Blood Count 3.83 M/uL (4.70-6.10); White Blood Count 9.76 K/ul (4.8-10.8)
[2023-01-14 07:37] LABS: BUN Creatinine Ratio 12.2 (10-20); Calcium 8.4 mg/dl (8.6-10.3); Creatinine Clr Calc Pharmacy 115.2 ml/min; Est GFR (Non-African American) 97.5 ml/min; Potassium 3.9 mmol/L (3.5-5.1)
--- NOTE | 2023-01-14 08:05 | Hospitalist Progress Note ---
Date of Service January 14, 2023 Assessment & Plan (1) Status post laparoscopic-assisted sigmoidectomy: Plan: POD# 2 s/p Laparoscopic Sigmoid Colon Resection, Repair Umbilical Hernia(Not Applicable) - Jono Wilder DO. EBL 200cc. Pathology from 12/22 w/ well differentiated adenocarcinoma WBC wnl, afebrile Hgb 13.6--> 12.1, acute blood loss anemia from surgery as well as dilutional from IVF post-op. Repeat stable on IVF at 11.8 D5 1/2NSS IVF @ 125cc/hr per primary service Ice chips/sips yesterday --> advanced to clear liquids this morning by surgery PPI increased to BID for reported reflux. On once daily omeprazole at home Lovenox SQ for DVT prophylaxis Continued inpatient stay and likely inpatient additional 24-48 hours per discussion w/ patient/. They expected total 4-8 days inpatient prior to having surgery done. Per , already has appt for heme/onc at end of this month. Added Protonix daily given omeprazole use at home and nausea reported. Increased reflux reported overnight and will increase to BID Lovenox SQ added for DVT prophylaxis (2) HTN (hypertension): Plan: BP stable/improved. Ordered lisinopril to resume tomorrow (3) Colon cancer: Plan: Reason for sigmoidectomy states already has appt heme/onc at end of this month (4) H/O thrombocytopenia: Plan: Has been ongoing for 20 + years, follows with hematology and had been on BID iron since April 2022 w/ 50lb weight loss (intential reported to attempt to get his DM under control) No family hx colon ca. Now w/ adenocarcinoma s/p resection CBC stable on repeat (5) Diabetes mellitus type 2, uncontrolled: Plan: A1c 5.1 most recent check -- WELL CONTROLLED (on metformin 1gm BID, pioglitazone 30mg, glimepiride 4mg daily at home) Pharmacy glycemic control consult already placed with orders in Continue to follow Pharmacy's recommendations BSGs acceptable (6) Hypothyroid: Plan: -Continue levothyroxine 25mcg Last TSH in system slightly elevated -- consider repeating w/ PCP after discharge in follow-up Plan Thank you for allowing hospitalist service to participate in the care of Mr Mills. Hospitalist service will follow along - please call with any urgent questions/concerns. Admission and Anticipated Discharge Date Admission Date: January 12, 2023 Supervising Physician Co-Signing Physician Notes The patient was not seen by me. The chart was reviewed. Case discussed with ADAM Wyatt. Agree with assessment and plan Subjective Eval this morning, doing little better. Sitting up in chair, at bedside. Denies knowing if he is passing gas but belly is grumbling. Dressing to RLQ incision leaking a little, dressing reportedly changed this morning. SANDRA w/ serosanguineous drainage present. Advanced to clear liquids this morning and denies any increased pain outside of incisional pain. Some belching/reflux. Discussed increasing PPI to BID for now. Discussed ambulating in halls - needs additional gown. Dressings changed this morning. Anticipating 4-8 days total in the hospital when they came in per discussion with Dr Wilder before surgery. RN to provide gowns/walker and they plan on ambulating the halls this afternoon. Denies any fever/chills, chest pain or shortness of breath at present. Questions/concerns addressed at this time. They have appt w/ heme/oncology at end of this month already scheduled per . Review of Systems Review of Systems: All systems reviewed & are unremarkable except as noted in HPI & below Physical Exam Physical Exam: General: WD male sitting up in recliner, mildly uncomfortable to abdomen w/ movements but no acute distress HEENT: head normocephalic, atraumatic, mmm, trachea midline, no deviation Resp: CTA, slightly diminished in the bases, no w/c/r, on room air CV: RRR, no significant m/r/g, no pitting edema/calf tenderness GI: +distension, +BS upper quadrants/LLQ, slightly hypoactive RLQ. no warmth/erythema. dressings in place to abdomnial incisions, decreased drainage around umbilicus improved, slight increased drainage to right sided incision, SANDRA w/ serosanguineous drainage. : no davis MSK/Neuro: no focal deficit, follows commands, no slurred speech Psych: AOx3, cooperative with exam Results & Data Results & Data Vital Signs (Past 12 Hours) Vital Signs Temp Pulse Resp BP Pulse Ox O2 Del Method 01/14/23 07:41 36.7 C 82 18 118/69 93 Room Air Laboratory Results 01/14/23 01/14/23 01/14/23 Range/Units 06:47 06:47 06:13 WBC 9.76 (4.8-10.8) K/ul RBC 3.83 L (4.70-6.10) M/uL Hgb 11.8 L (14.0-18.0) g/dl Hct 35.4 L (42.0-52.0) % MCV 92.4 (80.0-100.0) fL MCH 30.8 (25.0-34.0) pg MCHC 33.3 (32.0-36.0) g/dL RDW Std Deviation 46.6 H (36.4-46.3) fL RDW Coeff of Humberto 13.7 (11.5-14.5) % Plt Count 116 L (130-400) K/uL MPV 10.0 (9.4-12.4) fL Immature Gran % (Auto) 0.2 % Neut % (Auto) 82.0 % Lymph % (Auto) 10.8 % Carver % (Auto) 6.4 % Eos % (Auto) 0.3 % Baso % (Auto) 0.3 % Neut # (Auto) 8.01 H (1.40-6.50) K/uL Lymph # (Auto) 1.05 L (1.2-3.4) K/uL Carver # (Auto) 0.62 H (0.11-0.59) K/uL Eos # (Auto) 0.03 (0-0.50) K/uL Baso # (Auto) 0.03 (0-0.2) K/uL Immature Gran # (Auto) 0.02 (0.01-0.20) K/uL Sodium 138 (136-145) mmol/L Potassium 3.9 (3.5-5.1) mmol/L Chloride 104 (98-107) mmol/L Carbon Dioxide 28 (21-32) mmol/L Anion Gap 6 (3-11) BUN 9 (6-23) mg/dl Creatinine 0.74 (0.6-1.4) mg/dl Est Cr Clr Drug Dosing 115.2 ml/min Est GFR ( Amer) 113.0 ml/min Est GFR (Non-Af Amer) 97.5 ml/min BUN/Creatinine Ratio 12.2 (10-20) Glucose 187 H (70-99(Fasting)) mg/dl POC Glucose 165 H (70-99) mg/dl Calcium 8.4 L (8.6-10.3) mg/dl Magnesium 2.0 (1.7-2.4) mg/dl 01/13/23 01/13/23 01/13/23 Range/Units 23:56 18:06 11:59 WBC (4.8-10.8) K/ul RBC (4.70-6.10) M/uL Hgb (14.0-18.0) g/dl Hct (42.0-52.0) % MCV (80.0-100.0) fL MCH (25.0-34.0) pg MCHC (32.0-36.0) g/dL RDW Std Deviation (36.4-46.3) fL RDW Coeff of Humberto (11.5-14.5) % Plt Count (130-400) K/uL MPV (9.4-12.4) fL Immature Gran % (Auto) % Neut % (Auto) % Lymph % (Auto) % Carver % (Auto) % Eos % (Auto) % Baso % (Auto) % Neut # (Auto) (1.40-6.50) K/uL Lymph # (Auto) (1.2-3.4) K/uL Carver # (Auto) (0.11-0.59) K/uL Eos # (Auto) (0-0.50) K/uL Baso # (Auto) (0-0.2) K/uL Immature Gran # (Auto) (0.01-0.20) K/uL Sodium (136-145) mmol/L Potassium (3.5-5.1) mmol/L Chloride (98-107) mmol/L Carbon Dioxide (21-32) mmol/L Anion Gap (3-11) BUN (6-23) mg/dl Creatinine (0.6-1.4) mg/dl Est Cr Clr Drug Dosing ml/min Est GFR ( Amer) ml/min Est GFR (Non-Af Amer) ml/min BUN/Creatinine Ratio (10-20) Glucose (70-99(Fasting)) mg/dl POC Glucose 191 H 188 H 154 H (70-99) mg/dl Calcium (8.6-10.3) mg/dl Magnesium (1.7-2.4) mg/dl PG Care Time/CCT Total # of Minutes Spent Total Time Spent with Patient: Total time spent is greater than 50% in coordination of care (as documented) at patient's floor/unit and/or counseling patient: Coding Level of Care Code 77362 SUB INP/OBS CARE 2/35MIN Diagnoses Status post laparoscopic-assisted sigmoidectomy Z90.49 HTN (hypertension) I10 Colon cancer C18.9 H/O thrombocytopenia Z86.2 Diabetes mellitus type 2, uncontrolled E11.65 Hypothyroid E03.9
[2023-01-14] MEDS: PANTOprazole 40 MG in SYRINGE 0 ML IV SCH ×2 (08:07→20:57)
[2023-01-14] MEDS: ENOXAPARIN INJ 40 MG/0.4 ML SYR SQ SCH (08:07)
[2023-01-14] MEDS: LEVOTHYROXINE SODIUM 25 MCG TABLET PO SCH (08:08)
--- NOTE | 2023-01-14 08:39 | Surgery Progress Note ---
Date of Service January 14, 2023 Assessment & Plan (1) S/P colon resection: Plan: Postoperative day #2 Doing as expected We will let him try clear liquids today Awaiting return of bowel function Admission and Anticipated Discharge Date Admission Date: January 12, 2023 Subjective Patient seen. Doing well. No bowel function yet. Pain is improving. He does not feel bloated although he does have occasional nausea. He believes he feels hungry. Physical Exam Physical Exam: Alert. No acute distress Expected abdominal tenderness SANDRA drain with serous output Results & Data Vital Signs (Past 12 Hours) Vital Signs Temp Pulse Resp BP Pulse Ox O2 Del Method 01/14/23 07:41 36.7 C 82 18 118/69 93 Room Air PG Care Time/CCT Total # of Minutes Spent Total Time Spent with Patient: Total time spent is greater than 50% in coordination of care (as documented) at patient's floor/unit and/or counseling patient: Coding Level of Care Code 73997 Post Operative Follow-Up Diagnoses S/P colon resection Z90.49
--- NOTE | 2023-01-14 14:04 | Pharmacy Report ---
Pharmacy Glycemic Short Note 2 - Date of Service January 14, 2023 - Glycemic Short BSG Results (Last 24 hours): 01/13/23 01/13/23 01/14/23 18:06 23:56 06:13 Glucose POC Glucose 188 H 191 H 165 H 01/14/23 01/14/23 06:47 12:12 Glucose 187 H POC Glucose 219 H OUTPATIENT ANTIDIABETIC REGIMEN: * Metformin 1000 mg PO BID * Glimepiride 4 mg PO AM * Pioglitazone 30 mg PO AM * HbA1c: 5.1% (10/14/22) ASSESSMENT: 01/14/23 * BSGs yesterday were [phone] mg/dL. Patient received 2 units of Novolog. * Patient was started on D5 @125 mL/hr yesterday. This was reduced to 80 mL/hr today. * BSGs today are 165-219 mg/dL. * Hesitate to begin Lantus since elevated BSGs secondary to dextrose infusion. Patient most likely does have basal needs as he is on three oral agents. Since diet began at lunch and tolerated today. Will give 15 units (half weight-based stress of 2) with dinner. * Novolog weight-based stress 2-3. Tightened this morning due to climbing BSGs from dextrose fluids. Background * 62 yo M admitted on 01/12/23 following a sigmoid colon resection and hernia repair. Pharmacy has been consulted to assist with inpatient glycemic management. Patient is a well controlled Type 2 diabetic as an outpatient. Please refer to outpatient regimen and most recent HbA1c above. * Preop BSG 105 mg/dL. Postop BSG is 129 mg/dL. * Received 12 mg of IV dexamethasone perioperatively. Currently NPO. * Will not order any basal insulin at this time given postop BSG and NPO status. Starting Novolog based on weight/stress of 2. PLAN FOR INPATIENT GLYCEMIC CONTROL: * Hold outpatient oral diabetes medications * Basal insulin * Lantus 15 units SQ with dinner * Bolus insulin * NovoLog per scale ACHS or Q6hrs while NPO * Goal Range: Low 110 mg/dL - High 140 mg/dL * Correction Factor: 20 mg/dL/unit * Nutritional / Prandial insulin per carb ratio of 1 unit per 7 grams CHO consumed
[2023-01-14] MEDS ORDERED: LANTUS PER UNIT CHARGE SC SCH (16:30)
[2023-01-15] MEDS: ACETAMINOPHEN 1,000 MG/100 ML VIAL IV SCH (06:02)
--- NOTE | 2023-01-15 07:41 | Surgery Progress Note ---
Date of Service January 15, 2023 Assessment & Plan (1) S/P colon resection: Plan: Doing well postoperative day #3 We will advance to full liquids although we cautioned him about going slowly Can advance diet further after return of bowel function Pathology still pending Dr. Yocasta Carballo covering for the weekend Admission and Anticipated Discharge Date Admission Date: January 12, 2023 Subjective Patient seen. "Feeling better every day". No bowel movement yet but he believes he is passing a little gas. He does feel hungry. He tolerated clear liquids with no issue. He has minimal incisional discomfort and no nausea. Physical Exam Physical Exam: Alert. No acute distress Incisions are clean dry intact healing nicely SANDRA with serous output Results & Data Vital Signs (Past 12 Hours) Vital Signs Temp Pulse Resp BP Pulse Ox O2 Del Method 01/14/23 20:45 37.0 C 67 18 113/70 96 Room Air PG Care Time/CCT Total # of Minutes Spent Total Time Spent with Patient: Total time spent is greater than 50% in coordination of care (as documented) at patient's floor/unit and/or counseling patient: Coding Level of Care Code 50547 Post Operative Follow-Up Diagnoses S/P colon resection Z90.49
--- NOTE | 2023-01-15 07:47 | Hospitalist Progress Note ---
Date of Service January 15, 2023 Assessment & Plan (1) Status post laparoscopic-assisted sigmoidectomy: Plan: POD# 3 s/p Laparoscopic Sigmoid Colon Resection, Repair Umbilical Hernia(Not Applicable) - Jono Wilder DO. EBL 200cc. Pathology from 12/22 w/ well differentiated adenocarcinoma WBC wnl, afebrile Hgb 13.6--> 12.1, acute blood loss anemia from surgery as well as dilutional from IVF post-op. Repeat stable on IVF at 11.3 D5 1/2NSS IVF @ 125cc/hr per primary service -- ok w/ surgery to d/c today as advancing to full liquid diet. Instructed to go slow/stop if any issues Continues on PPI BID - consider continuing BID at d/c Pain control/antiemetics Ambulation encouraged -- has been walking w/ . +flatus, no BM yet Diet being advanced to full liquids for lunch Lovenox SQ for DVT prophylaxis Per patient, hopeful for possible discharge tomorrow. Will chart check but if stable for dc from surgical standpoint, medicine can sign off. Please call with any questions/concerns. (2) HTN (hypertension): Plan: BP stable/improved 122/73 Lisinopril resumed (3) Colon cancer: Plan: Reason for sigmoidectomy states already has appt heme/onc at end of this month (4) H/O thrombocytopenia: Plan: Has been ongoing for 20 + years, follows with hematology and had been on BID iron since April 2022 w/ 50lb weight loss (intential reported to attempt to get his DM under control) No family hx colon ca. Now w/ adenocarcinoma s/p resection CBC stable on repeat (5) Diabetes mellitus type 2, uncontrolled: Plan: A1c 5.1 most recent check -- WELL CONTROLLED (on metformin 1gm BID, pioglitazone 30mg, glimepiride 4mg daily at home) Pharmacy glycemic control consult already placed with orders in Continue to follow Pharmacy's recommendations BSGs acceptable (6) Hypothyroid: Plan: -Continue levothyroxine 25mcg Last TSH in system slightly elevated -- consider repeating w/ PCP after discharge in follow-up Plan Thank you for allowing hospitalist service to participate in the care of Mr Mills. Hospitalist service will follow along - will sign off if stable for dc in AM. Otherwise please call with any questions/concerns. Admission and Anticipated Discharge Date Admission Date: January 12, 2023 Supervising Physician Co-Signing Physician Notes The patient was not seen by me. The chart was reviewed. Case discussed with ADAM Wyatt. Agree with assessment and plan Subjective Patient evaluated this morning, feeling better than yesterday. Still with in cisional pain but improving. Had been ambulating in the halls with yesterday and planning to do so again today. SANDRA drain emptied this morning -- will monitor to see if able to pull prior to dc vs need for HH at discharge. He is passing gas. No BM yet. RN to provide cushion for chair for comfort. Got good rest last night, no increased reflux and discussed continuing PPI BID No fever/chills, chest pain, shortness of breath. Advancing to full liquid diet per surgery. Will stop IVF per discussion w/ PA - patient thankful for that to stop having to get up to pee all day. Questions/concerns addressed. He is hopeful for dc tomorrow. Review of Systems Review of Systems: All systems reviewed & are unremarkable except as noted in HPI & below Physical Exam Physical Exam: General: WD male sitting up in recliner, NAD HEENT: head normocephalic, atraumatic, mmm, trachea midline, no deviation Resp: CTA, slightly diminished in the bases, no w/c/r, on room air CV: RRR, no significant m/r/g, no pitting edema/calf tenderness GI: +distension, + BS throughout, less tender but appropriate incisional tenderness, no increased warmth/erythema, incisions w/ dressing c/d/i, some drainage RLQ, SANDRA w/ serosanguineous drainage. : no davis MSK/Neuro: no focal deficit, follows commands, no slurred speech Psych: AOx3, cooperative with exam Results & Data Results & Data Vital Signs (Past 12 Hours) Vital Signs Temp Pulse Resp BP Pulse Ox O2 Del Method 01/15/23 07:41 36.4 C L 67 18 122/73 98 Room Air 01/14/23 20:45 37.0 C 67 18 113/70 96 Room Air Laboratory Results 01/15/23 01/15/23 01/15/23 Range/Units 08:09 08:06 08:06 WBC 7.88 (4.8-10.8) K/ul RBC 3.66 L (4.70-6.10) M/uL Hgb 11.3 L (14.0-18.0) g/dl Hct 33.8 L (42.0-52.0) % MCV 92.3 (80.0-100.0) fL MCH 30.9 (25.0-34.0) pg MCHC 33.4 (32.0-36.0) g/dL RDW Std Deviation 45.1 (36.4-46.3) fL RDW Coeff of Humberto 13.3 (11.5-14.5) % Plt Count 127 L (130-400) K/uL MPV 10.1 (9.4-12.4) fL Immature Gran % (Auto) 0.3 % Neut % (Auto) 79.5 % Lymph % (Auto) 11.8 % [place] % (Auto) 5.5 % Eos % (Auto) 2.4 % Baso % (Auto) 0.5 % Neut # (Auto) 6.27 (1.40-6.50) K/uL Lymph # (Auto) 0.93 L (1.2-3.4) K/uL [place] # (Auto) 0.43 (0.11-0.59) K/uL Eos # (Auto) 0.19 (0-0.50) K/uL Baso # (Auto) 0.04 (0-0.2) K/uL Immature Gran # (Auto) 0.02 (0.01-0.20) K/uL Sodium Pending Potassium Pending Chloride Pending Carbon Dioxide Pending Anion Gap Pending BUN Pending Creatinine Pending Est Cr Clr Drug Dosing Pending Est GFR ( Amer) Pending Est GFR (Non-Af Amer) Pending BUN/Creatinine Ratio Pending Glucose Pending POC Glucose 184 H (70-99) mg/dl Calcium Pending Magnesium Pending 01/14/23 01/14/23 01/14/23 Range/Units 20:38 17:01 12:12 WBC (4.8-10.8) K/ul RBC (4.70-6.10) M/uL Hgb (14.0-18.0) g/dl Hct (42.0-52.0) % MCV (80.0-100.0) fL MCH (25.0-34.0) pg MCHC (32.0-36.0) g/dL RDW Std Deviation (36.4-46.3) fL RDW Coeff of Humberto (11.5-14.5) % Plt Count (130-400) K/uL MPV (9.4-12.4) fL Immature Gran % (Auto) % Neut % (Auto) % Lymph % (Auto) % [place] % (Auto) % Eos % (Auto) % Baso % (Auto) % Neut # (Auto) (1.40-6.50) K/uL Lymph # (Auto) (1.2-3.4) K/uL [place] # (Auto) (0.11-0.59) K/uL Eos # (Auto) (0-0.50) K/uL Baso # (Auto) (0-0.2) K/uL Immature Gran # (Auto) (0.01-0.20) K/uL Sodium Potassium Chloride Carbon Dioxide Anion Gap BUN Creatinine Est Cr Clr Drug Dosing Est GFR ( Amer) Est GFR (Non-Af Amer) BUN/Creatinine Ratio Glucose POC Glucose 112 H 106 H 219 H (70-99) mg/dl Calcium Magnesium PG Care Time/CCT Total # of Minutes Spent Total Time Spent with Patient: Total time spent is greater than 50% in coordination of care (as documented) at patient's floor/unit and/or counseling patient: Coding Level of Care Code 82253 SUB INP/OBS CARE 2/35MIN Diagnoses Status post laparoscopic-assisted sigmoidectomy Z90.49 HTN (hypertension) I10 Colon cancer C18.9 H/O thrombocytopenia Z86.2 Diabetes mellitus type 2, uncontrolled E11.65 Hypothyroid E03.9
[2023-01-15] MEDS: LEVOTHYROXINE SODIUM 25 MCG TABLET PO SCH (08:22)
[2023-01-15] MEDS: ENOXAPARIN INJ 40 MG/0.4 ML SYR SQ SCH (08:22)
[2023-01-15] MEDS: lisinopril 5 MG TAB PO SCH (08:22)
[2023-01-15] MEDS: PANTOprazole 40 MG in SYRINGE 0 ML IV SCH (08:24)
[2023-01-15 08:42] LABS: Basophils # (auto) 0.04 K/uL (0-0.2); Basophils % (auto) 0.5 %; Eosinophils # (auto) 0.19 K/uL (0-0.50); Eosinophils % (auto) 2.4 %; Hematocrit (blood only) 33.8 % (42.0-52.0); Hemoglobin 11.3 g/dl (14.0-18.0); Immature Granulocytes # (auto) 0.02 K/uL (0.01-0.20); Immature Granulocytes % (auto) 0.3 %; Lymphocytes # (auto) 0.93 K/uL (1.2-3.4); Lymphocytes % (auto) 11.8 %; Mean Corpuscular Hemoglobin 30.9 pg (25.0-34.0); Mean Corpuscular Hgb Conc 33.4 g/dL (32.0-36.0); Mean Corpuscular Volume 92.3 fL (80.0-100.0); Mean Platelet Volume 10.1 fL (9.4-12.4); Monocytes # (auto) 0.43 K/uL (0.11-0.59); Monocytes % (auto) 5.5 %; Neutrophils # (auto) 6.27 K/uL (1.40-6.50); Neutrophils % (auto) 79.5 %; Platelet Count 127 K/uL (130-400); RDW Coefficient of Variation 13.3 % (11.5-14.5); RDW Standard Deviation 45.1 fL (36.4-46.3); Red Blood Count 3.66 M/uL (4.70-6.10); White Blood Count 7.88 K/ul (4.8-10.8)
[2023-01-15 09:01] LABS: BUN Creatinine Ratio 10.3 (10-20); Calcium 8.4 mg/dl (8.6-10.3); Creatinine Clr Calc Pharmacy 125.4 ml/min; Est GFR (Non-African American) 100.9 ml/min; Magnesium 1.9 mg/dl (1.7-2.4); Potassium 3.9 mmol/L (3.5-5.1)
[2023-01-15] MEDS: INSULIN ASPART PER UNIT CHARGE SC SCH ×4 (09:48→21:09)
--- NOTE | 2023-01-15 13:07 | Pharmacy Report ---
Pharmacy Glycemic Short Note 2 - Date of Service January 15, 2023 - Glycemic Short BSG Results (Last 24 hours): 01/14/23 01/14/23 01/15/23 17:01 20:38 08:06 Glucose 189 H POC Glucose 106 H 112 H 01/15/23 01/15/23 08:09 12:16 Glucose POC Glucose 184 H 139 H OUTPATIENT ANTIDIABETIC REGIMEN: * Metformin 1000 mg PO BID * Glimepiride 4 mg PO AM * Pioglitazone 30 mg PO AM * HbA1c: 5.1% (10/14/22) ASSESSMENT: 01/15/23 * Patient's BSGs yesterday were [phone] mg/dL. Patient received 30 units of insulin (15 units of basal and 15 units of bolus). * D5@ 80 mLs/hr was d/c'ed this AM. * BSGs today are 184-139 mg/dL. * Since D5 infusion stopped, will have a lower dose of Lantus available in case BSGs continue to trend downwards. * Continue Novolog. 01/14/23 * BSGs yesterday were [phone] mg/dL. Patient received 2 units of Novolog. * Patient was started on D5 @125 mL/hr yesterday. This was reduced to 80 mL/hr today. * BSGs today are 165-219 mg/dL. * Hesitate to begin Lantus since elevated BSGs secondary to dextrose infusion. Patient most likely does have basal needs as he is on three oral agents. Since diet began at lunch and tolerated today. Will give 15 units (half weight-based stress of 2) with dinner. * Novolog weight-based stress 2-3. Tightened this morning due to climbing BSGs from dextrose fluids. Background * 62 yo M admitted on 01/12/23 following a sigmoid colon resection and hernia repair. Pharmacy has been consulted to assist with inpatient glycemic management. Patient is a well controlled Type 2 diabetic as an outpatient. Please refer to outpatient regimen and most recent HbA1c above. * Preop BSG 105 mg/dL. Postop BSG is 129 mg/dL. * Received 12 mg of IV dexamethasone perioperatively. Currently NPO. * Will not order any basal insulin at this time given postop BSG and NPO status. Starting Novolog based on weight/stress of 2. PLAN FOR INPATIENT GLYCEMIC CONTROL: * Hold outpatient oral diabetes medications * Basal insulin * Lantus 15 units SQ with dinner (10 units if BSG < 140 mg/dL) * Bolus insulin * NovoLog per scale ACHS or Q6hrs while NPO * Goal Range: Low 110 mg/dL - High 140 mg/dL * Correction Factor: 25 mg/dL/unit * Nutritional / Prandial insulin per carb ratio of 1 unit per 7 grams CHO consumed
[2023-01-15] MEDS ORDERED: FAMOTIDINE 20 MG TAB PO PRN (13:12)
[2023-01-15] MEDS: HYDROmorphone INJ 0.5 MG/0.5 ML SYR IV PRN (15:41)
[2023-01-15] MEDS ORDERED: ACETAMINOPHEN 325 MG TAB PO PRN (15:55)
[2023-01-15] MEDS ORDERED: oxyCODONE/ACETAMINOPHEN 5mg/325mg TAB PO PRN (15:55)
[2023-01-15] MEDS: LANTUS PER UNIT CHARGE SC SCH (18:45)
[2023-01-15] MEDS: oxyCODONE/ACETAMINOPHEN 5mg/325mg TAB PO PRN (20:34)
[2023-01-15] MEDS: PANTOprazole 40 MG TAB PO SCH (20:34)
[2023-01-16] MEDS: INSULIN ASPART PER UNIT CHARGE SC SCH ×6 (00:15→20:19)
[2023-01-16 05:55] LABS: Basophils # (auto) 0.04 K/uL (0-0.2); Basophils % (auto) 0.6 %; Eosinophils % (auto) 2.9 %; Hematocrit (blood only) 31.9 % (42.0-52.0); Hemoglobin 10.5 g/dl (14.0-18.0); Immature Granulocytes # (auto) 0.03 K/uL (0.01-0.20); Immature Granulocytes % (auto) 0.4 %; Lymphocytes # (auto) 1.02 K/uL (1.2-3.4); Lymphocytes % (auto) 14.7 %; Mean Corpuscular Hemoglobin 30.9 pg (25.0-34.0); Mean Corpuscular Hgb Conc 32.9 g/dL (32.0-36.0); Mean Corpuscular Volume 93.8 fL (80.0-100.0); Mean Platelet Volume 9.5 fL (9.4-12.4); Monocytes # (auto) 0.45 K/uL (0.11-0.59); Monocytes % (auto) 6.5 %; Neutrophils # (auto) 5.22 K/uL (1.40-6.50); Neutrophils % (auto) 74.9 %; Platelet Count 108 K/uL (130-400); RDW Coefficient of Variation 13.1 % (11.5-14.5); RDW Standard Deviation 44.7 fL (36.4-46.3); White Blood Count 6.96 K/ul (4.8-10.8)
[2023-01-16 06:14] LABS: Calcium 8.5 mg/dl (8.6-10.3); Creatinine Clr Calc Pharmacy 116.8 ml/min; Est GFR (African American) 113.6 ml/min; Magnesium 1.8 mg/dl (1.7-2.4); Potassium 4.2 mmol/L (3.5-5.1)
[2023-01-16] MEDS: oxyCODONE/ACETAMINOPHEN 5mg/325mg TAB PO PRN ×2 (07:51→20:18)
--- NOTE | 2023-01-16 08:00 | Hospitalist Progress Note ---
Date of Service January 16, 2023 Assessment & Plan (1) Status post laparoscopic-assisted sigmoidectomy: Plan: POD# 4 s/p Laparoscopic Sigmoid Colon Resection, Repair Umbilical Hernia(Not Applicable) - Jono Wilder DO. EBL 200cc. 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 Path from OR pending WBC wnl, afebrile Hgb did drop from 13.6--> 10.5 on AM labs but had been on continous IVF through yesterday morning, now with slightly more SANDRA output drainage and hgb drop after IVF stopped. Acute blood loss anemia from surgery as well as some component of dilutional from IVF suspected. Alerted surgery of such. Patient did report hematuria this mornign however, no prior hx or of stones. Did have davis post-op --> will check UA/cx, likely needing f/u Urology. Diet per surgery, on full liquid diet at present +BM overnight Pain control/antiemetics prn PPI BID -- consider continuing at discharge Lovenox SQ for DVT prophylaxis, ambulation encouraged and patient has been ambulating the halls. Monitor blood counts/SANDRA output in AM. Monitor UA/Cx (2) HTN (hypertension): Plan: BP stable 116/68 and lisinopril resumed post-op and continued (3) Colon cancer: Plan: Reason for sigmoidectomy states already has appt heme/onc at end of this month (4) H/O thrombocytopenia: Plan: Has been ongoing for 20 + years, follows with hematology and had been on BID iron since April 2022 w/ 50lb weight loss (intential reported to attempt to get his DM under control) No family hx colon ca. Now w/ adenocarcinoma s/p resection CBC w/ drop in hgb as above will check iron studies w/ AM labs as well as prior on PO Fe BID CBC in AM (5) Diabetes mellitus type 2, uncontrolled: Plan: A1c 5.1 most recent check -- WELL CONTROLLED (on metformin 1gm BID, pioglitazone 30mg, glimepiride 4mg daily at home) Pharmacy glycemic control consult already placed with orders in Continue to follow Pharmacy's recommendations BSGs acceptable (6) Hypothyroid: Plan: Continue levothyroxine 25mcg Last TSH in system slightly elevated -- consider repeating w/ PCP after discharge in follow-up Plan Thank you for allowing hospitalist service to participate in the care of Mr Mills. Hospitalist service will follow along. Please call with any questions/concerns Admission and Anticipated Discharge Date Admission Date: January 12, 2023 Supervising Physician Co-Signing Physician Notes The patient was not seen by me. The chart was reviewed. Case discussed with ADAM Wyatt. Agree with assessment and plan Subjective eval this morning, doing well. moved his bowels overnight, tolerated cream of wheat. states he was seen by two females this morning and planning to have his diet advanced. discussed hgb drop -- SANDRA output slightly increased. he does report having some light red blood in his urine -- discussed checking UA/cx for analysis given he's had davis following procedure. denies any hx kidney stones. no fever/chills, chest pain, shortness of breath at this time. Physical Exam Physical Exam: General: WD male sitting up in bed, NAD HEENT: head normocephalic, atraumatic, mmm, trachea midline, no deviation Resp: CTA, slightly diminished in the bases, no w/c/r, on room air CV: RRR, no significant m/r/g, no pitting edema/calf tenderness GI: +NS, +distension (slightly less), tender to palpation around incisions, no rigidity, does have some voluntary guarding at times, dressing w/ some drainage RLQ, SANDRA w/ continued output (slightly increased) : no davis MSK/Neuro: no focal deficit, follows commands, no slurred speech Psych: AOx3, cooperative with exam Results & Data Results & Data Vital Signs (Past 12 Hours) Vital Signs Temp Pulse Resp BP Pulse Ox O2 Del Method 01/16/23 07:32 36.9 C 74 18 116/68 93 Room Air 01/15/23 20:54 37 C 74 16 108/65 96 Room Air Laboratory Results 01/16/23 01/16/23 01/16/23 Range/Units 05:34 05:34 03:37 WBC 6.96 (4.8-10.8) K/ul RBC 3.40 L (4.70-6.10) M/uL Hgb 10.5 L (14.0-18.0) g/dl Hct 31.9 L (42.0-52.0) % MCV 93.8 (80.0-100.0) fL MCH 30.9 (25.0-34.0) pg MCHC 32.9 (32.0-36.0) g/dL RDW Std Deviation 44.7 (36.4-46.3) fL RDW Coeff of Humberto 13.1 (11.5-14.5) % Plt Count 108 L (130-400) K/uL MPV 9.5 (9.4-12.4) fL Immature Gran % (Auto) 0.4 % Neut % (Auto) 74.9 % Lymph % (Auto) 14.7 % [place] % (Auto) 6.5 % Eos % (Auto) 2.9 % Baso % (Auto) 0.6 % Neut # (Auto) 5.22 (1.40-6.50) K/uL Lymph # (Auto) 1.02 L (1.2-3.4) K/uL [place] # (Auto) 0.45 (0.11-0.59) K/uL Eos # (Auto) 0.20 (0-0.50) K/uL Baso # (Auto) 0.04 (0-0.2) K/uL Immature Gran # (Auto) 0.03 (0.01-0.20) K/uL Sodium 140 (136-145) mmol/L Potassium 4.2 (3.5-5.1) mmol/L Chloride 105 (98-107) mmol/L Carbon Dioxide 32 (21-32) mmol/L Anion Gap 3 (3-11) BUN 8 (6-23) mg/dl Creatinine 0.73 (0.6-1.4) mg/dl Est Cr Clr Drug Dosing 116.8 ml/min Est GFR ( Amer) 113.6 ml/min Est GFR (Non-Af Amer) 98.0 ml/min BUN/Creatinine Ratio 11.0 (10-20) Glucose 142 H (70-99(Fasting)) mg/dl POC Glucose 112 H (70-99) mg/dl Calcium 8.5 L (8.6-10.3) mg/dl Magnesium 1.8 (1.7-2.4) mg/dl 01/16/23 01/15/23 01/15/23 Range/Units 00:12 20:17 17:12 WBC (4.8-10.8) K/ul RBC (4.70-6.10) M/uL Hgb (14.0-18.0) g/dl Hct (42.0-52.0) % MCV (80.0-100.0) fL MCH (25.0-34.0) pg MCHC (32.0-36.0) g/dL RDW Std Deviation (36.4-46.3) fL RDW Coeff of Humberto (11.5-14.5) % Plt Count (130-400) K/uL MPV (9.4-12.4) fL Immature Gran % (Auto) % Neut % (Auto) % Lymph % (Auto) % [place] % (Auto) % Eos % (Auto) % Baso % (Auto) % Neut # (Auto) (1.40-6.50) K/uL Lymph # (Auto) (1.2-3.4) K/uL [place] # (Auto) (0.11-0.59) K/uL Eos # (Auto) (0-0.50) K/uL Baso # (Auto) (0-0.2) K/uL Immature Gran # (Auto) (0.01-0.20) K/uL Sodium (136-145) mmol/L Potassium (3.5-5.1) mmol/L Chloride (98-107) mmol/L Carbon Dioxide (21-32) mmol/L Anion Gap (3-11) BUN (6-23) mg/dl Creatinine (0.6-1.4) mg/dl Est Cr Clr Drug Dosing ml/min Est GFR ( Amer) ml/min Est GFR (Non-Af Amer) ml/min BUN/Creatinine Ratio (10-20) Glucose (70-99(Fasting)) mg/dl POC Glucose 122 H 138 H 71 (70-99) mg/dl Calcium (8.6-10.3) mg/dl Magnesium (1.7-2.4) mg/dl 01/15/23 01/15/23 01/15/23 Range/Units 12:16 08:09 08:06 WBC 7.88 (4.8-10.8) K/ul RBC 3.66 L (4.70-6.10) M/uL Hgb 11.3 L (14.0-18.0) g/dl Hct 33.8 L (42.0-52.0) % MCV 92.3 (80.0-100.0) fL MCH 30.9 (25.0-34.0) pg MCHC 33.4 (32.0-36.0) g/dL RDW Std Deviation 45.1 (36.4-46.3) fL RDW Coeff of Humberto 13.3 (11.5-14.5) % Plt Count 127 L (130-400) K/uL MPV 10.1 (9.4-12.4) fL Immature Gran % (Auto) 0.3 % Neut % (Auto) 79.5 % Lymph % (Auto) 11.8 % [place] % (Auto) 5.5 % Eos % (Auto) 2.4 % Baso % (Auto) 0.5 % Neut # (Auto) 6.27 (1.40-6.50) K/uL Lymph # (Auto) 0.93 L (1.2-3.4) K/uL [place] # (Auto) 0.43 (0.11-0.59) K/uL Eos # (Auto) 0.19 (0-0.50) K/uL Baso # (Auto) 0.04 (0-0.2) K/uL Immature Gran # (Auto) 0.02 (0.01-0.20) K/uL Sodium (136-145) mmol/L Potassium (3.5-5.1) mmol/L Chloride (98-107) mmol/L Carbon Dioxide (21-32) mmol/L Anion Gap (3-11) BUN (6-23) mg/dl Creatinine (0.6-1.4) mg/dl Est Cr Clr Drug Dosing ml/min Est GFR ( Amer) ml/min Est GFR (Non-Af Amer) ml/min BUN/Creatinine Ratio (10-20) Glucose (70-99(Fasting)) mg/dl POC Glucose 139 H 184 H (70-99) mg/dl Calcium (8.6-10.3) mg/dl Magnesium (1.7-2.4) mg/dl 01/15/23 Range/Units 08:06 WBC (4.8-10.8) K/ul RBC (4.70-6.10) M/uL Hgb (14.0-18.0) g/dl Hct (42.0-52.0) % MCV (80.0-100.0) fL MCH (25.0-34.0) pg MCHC (32.0-36.0) g/dL RDW Std Deviation (36.4-46.3) fL RDW Coeff of Humberto (11.5-14.5) % Plt Count (130-400) K/uL MPV (9.4-12.4) fL Immature Gran % (Auto) % Neut % (Auto) % Lymph % (Auto) % [place] % (Auto) % Eos % (Auto) % Baso % (Auto) % Neut # (Auto) (1.40-6.50) K/uL Lymph # (Auto) (1.2-3.4) K/uL [place] # (Auto) (0.11-0.59) K/uL Eos # (Auto) (0-0.50) K/uL Baso # (Auto) (0-0.2) K/uL Immature Gran # (Auto) (0.01-0.20) K/uL Sodium 138 (136-145) mmol/L Potassium 3.9 (3.5-5.1) mmol/L Chloride 104 (98-107) mmol/L Carbon Dioxide 30 (21-32) mmol/L Anion Gap 4 (3-11) BUN 7 (6-23) mg/dl Creatinine 0.68 (0.6-1.4) mg/dl Est Cr Clr Drug Dosing 125.4 ml/min Est GFR ( Amer) 117.0 ml/min Est GFR (Non-Af Amer) 100.9 ml/min BUN/Creatinine Ratio 10.3 (10-20) Glucose 189 H (70-99(Fasting)) mg/dl POC Glucose (70-99) mg/dl Calcium 8.4 L (8.6-10.3) mg/dl Magnesium 1.9 (1.7-2.4) mg/dl PG Care Time/CCT Total # of Minutes Spent Total Time Spent with Patient: Total time spent is greater than 50% in coordination of care (as documented) at patient's floor/unit and/or counseling patient: Coding Level of Care Code 70063 SUB INP/OBS CARE 3/50MIN Diagnoses Status post laparoscopic-assisted sigmoidectomy Z90.49 HTN (hypertension) I10 Colon cancer C18.9 H/O thrombocytopenia Z86.2 Diabetes mellitus type 2, uncontrolled E11.65 Hypothyroid E03.9
[2023-01-16] MEDS: lisinopril 5 MG TAB PO SCH (09:24)
[2023-01-16] MEDS: LEVOTHYROXINE SODIUM 25 MCG TABLET PO SCH (09:24)
[2023-01-16] MEDS: ENOXAPARIN INJ 40 MG/0.4 ML SYR SQ SCH (09:24)
[2023-01-16] MEDS: PANTOprazole 40 MG TAB PO SCH ×2 (09:25→20:18)
--- NOTE | 2023-01-16 11:12 | Surgery Progress Note ---
I have seen this patient with the surgical PA this am and I agree with the plan. Date of Service January 16, 2023 Assessment & Plan (1) S/P colon resection: Plan: 01/16/2023 POD #4 s/p Lap sigmoid resection with umbilical hernia repair. He is doing well. Pain is well-controlled. He has started moving his bowels and continues to pass flatus. Incisions are healing well with no signs of infection. Drain output is slightly bloody today and patient has had a slight drop in Hgb. Will repeat H and H tomorrow morning. Will advance diet to low fiber, carb consistent, DM2. Patient did report some blood in urine- urine culture ordered by hospitalist. Would recommend outpatient urology follow-up. Possible discharge tomorrow pending AM labs. Patient see and examined with Dr. Harvey. 01/15/2023 Doing well postoperative day #3 We will advance to full liquids although we cautioned him about going slowly Can advance diet further after return of bowel function Pathology still pending Dr. Yocasta Carballo covering for the weekend Admission and Anticipated Discharge Date Admission Date: January 12, 2023 Subjective Patient resting in chair at bedside. His pain is controlled. He reports that he has been passing flatus and has been moving his bowels. He is tolerating a full liquid diet. Reports that he does feel hungry. Review of Systems Constitutional: no fever and no chills Respiratory: no cough and no dyspnea Cardiovascular: no chest pain, no chest pain at rest, no chest pain with activity and no dyspnea Physical Exam Physical Exam: Abdominal incisions are clean, dry, intact and well-approximated with no signs of infection. SANDRA drain in place with some bloody drainage in bulb today. Constitutional: WD/WN, vitals as above Respiratory: normal respiratory effort; no respiratory distress and no labored breathing Results & Data Vital Signs (Past 12 Hours) Vital Signs Temp Pulse Resp BP Pulse Ox O2 Del Method 01/16/23 07:32 36.9 C 74 18 116/68 93 Room Air PG Care Time/CCT Total # of Minutes Spent Total Time Spent with Patient: Total time spent is greater than 50% in coordination of care (as documented) at patient's floor/unit and/or counseling patient: Coding Level of Care Code 50004 Post Operative Follow-Up Diagnoses S/P colon resection Z90.49
[2023-01-16 12:20] LABS: Appearance Urine Cloudy (Clear); Bacteria Urine Automated 1+ (Negative); Bilirubin Urine Negative (Negative); Blood Urine 3+ (Negative); Color Urine Orange; Epithelial Cell Urine Auto 20-30 /lpf (0-5); Glucose Urine UA 2+ (Negative); Ketones Urine Negative (Negative); Leukocyte Esterase Urine 3+ (Negative); Nitrite Urine Positive (Negative); Protein Urine 2+ (Negative); Specific Gravity Urine 1.009 (1.000-1.030); Urobilinogen Urine Negative (Negative); WBC Urine Automated >30 /hpf (0-5)
[2023-01-16] MEDS: ONDANSETRON INJ 2 MG/ML 2 ML VIAL IV PRN (12:55)
--- NOTE | 2023-01-16 14:42 | Communication Note ---
Date of Service: January 16, 2023 Patient UA came back appearing infected. WBC>epi, +nitrite and bacteria Given hematuria complaints as well, decision to start empiric rocpehin and will monitor further hematuria and urine cx/de-escalation pending sensitivities
[2023-01-16] MEDS: cefTRIAXone SODIUM 2,000 MG in DEXTROSE 5% 50 ML IV SCH (15:58)
[2023-01-16] MEDS: LANTUS PER UNIT CHARGE SC SCH (18:18)
[2023-01-17] MEDS: LEVOTHYROXINE SODIUM 25 MCG TABLET PO SCH (05:46)
[2023-01-17] MEDS: oxyCODONE/ACETAMINOPHEN 5mg/325mg TAB PO PRN ×2 (05:47→14:51)
[2023-01-17 07:41] LABS: Basophils # (auto) 0.04 K/uL (0-0.2); Basophils % (auto) 0.6 %; Eosinophils # (auto) 0.14 K/uL (0-0.50); Hematocrit (blood only) 31.7 % (42.0-52.0); Hemoglobin 10.8 g/dl (14.0-18.0); Immature Granulocytes # (auto) 0.02 K/uL (0.01-0.20); Immature Granulocytes % (auto) 0.3 %; Lymphocytes # (auto) 0.97 K/uL (1.2-3.4); Mean Corpuscular Hemoglobin 31.1 pg (25.0-34.0); Mean Corpuscular Hgb Conc 34.1 g/dL (32.0-36.0); Mean Corpuscular Volume 91.4 fL (80.0-100.0); Mean Platelet Volume 9.6 fL (9.4-12.4); Monocytes # (auto) 0.41 K/uL (0.11-0.59); Monocytes % (auto) 5.9 %; Neutrophils # (auto) 5.34 K/uL (1.40-6.50); Neutrophils % (auto) 77.2 %; Platelet Count 129 K/uL (130-400); RDW Coefficient of Variation 13.1 % (11.5-14.5); RDW Standard Deviation 43.9 fL (36.4-46.3); Red Blood Count 3.47 M/uL (4.70-6.10); White Blood Count 6.92 K/ul (4.8-10.8)
--- NOTE | 2023-01-17 07:52 | Hospitalist Progress Note ---
Date of Service January 17, 2023 Assessment & Plan (1) Status post laparoscopic-assisted sigmoidectomy: Plan: POD# 5 s/p Laparoscopic Sigmoid Colon Resection, Repair Umbilical Hernia(Not Applicable) - Jono Wilder DO. EBL 200cc. 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 Path from OR pending WBC wnl, afebrile Hgb did drop from 13.6--> 10.5 on AM labs but had been on continuous IVF through yesterday morning, now with slightly more SANDRA output drainage and hgb drop after IVF stopped. Acute blood loss anemia from surgery as well as some component of dilutional from IVF suspected. Alerted surgery of such. Patient did report hematuria AM 01/16 however, no prior hx or of stones. Hgb improved on repeat since starting abx for UTI, hematuria reported slowed Diet per surgery, on full liquid diet at present +BM overnight 01/15-01/16 Pain control/antiemetics prn PPI BID -- consider continuing at discharge Lovenox SQ for DVT prophylaxis, ambulation encouraged and patient has been ambulating the halls. Regarding hematuria--> UA checked, appeared infected. Abx started with Rocephin (today would be 2nd dose) Urine cx w/ GNB -- continue IV abx today, de-escalate tomorrow pending sensitivities Rec f/u Urology at pa given family hx bladder ca given hematuria for further eval (2) HTN (hypertension): Plan: BP stable but lower normal this morning, currently 97/56 - asymptomatic with such placed lisinopril on hold for today, can resume in AM if no issues (3) Colon cancer: Plan: Reason for sigmoidectomy states already has appt heme/onc at end of this month (4) H/O thrombocytopenia: Plan: Has been ongoing for 20 + years, follows with hematology and had been on BID iron since April 2022 w/ 50lb weight loss (intential reported to attempt to get his DM under control) No family hx colon ca. Now w/ adenocarcinoma s/p resection CBC w/ drop in hgb as above, improved on repeat Iron studies pending w/ AM labs (on PO Fe BID at home) -- consider venofer IV (5) Diabetes mellitus type 2, uncontrolled: Plan: A1c 5.1 most recent check -- WELL CONTROLLED (on metformin 1gm BID, pioglitazone 30mg, glimepiride 4mg daily at home) Pharmacy glycemic control consult already placed with orders in Continue to follow Pharmacy's recommendations BSGs acceptable (6) Hypothyroid: Plan: Continue levothyroxine 25mcg Last TSH in system slightly elevated -- consider repeating w/ PCP after discharge in follow-up Plan Thank you for allowing hospitalist service to participate in the care of Mr Mills. Mr Mills noting not feeling comfortable with discharge today w/ SANDRA output and UTI and wanting to wait until tomorrow. Message primary w/ concerns and possible overnight monitoring for urine cx/sensitivities and SANDRA output and possible discharge postponed until tomorrow Hospitalist will follow along in the morning. Please call with any questions/ concerns. Admission and Anticipated Discharge Date Admission Date: January 12, 2023 Supervising Physician Co-Signing Physician Notes The patient was not seen by me. The chart was reviewed. Case discussed with ADAM Wyatt. Agree with assessment and plan Subjective evaluated this morning, up in chair. SANDRA emptied this morning, slightly decreased output thankfully. reporting feeling a little better today hematuria slowing, slight pink tinge at times. does have brother with hx prostate ca-- discussed f/u urology at discharge for eval given such once over current UTI hgb improved on repeat labs. BP borderline this morning but asymptomatic -discussed holding lisinopril for today. No fever/chills, chest pain/shortness of breath. He notes surgery had consider dc for today w/ drain in place but him and are concerned about the drain output and uti and would feel more comfortable monitoring overnight to ensure appropriate abx for UTI based on sensitivities as well as SANDRA output monitoring. Discussed will message general surgery of such to consider keeping inpatient overnight and planning for discharge tomorrow. Physical Exam Physical Exam: General: WD male sitting up in bed, NAD, appearing improved HEENT: head normocephalic, atraumatic, mmm, trachea midline, no deviation Resp: CTA, slightly diminished in the bases, no w/c/r, on room air CV: RRR, no significant m/r/g, no pitting edema/calf tenderness GI: +BS, less distention, tender to palpation around incisions, dressing c/d/i (changed this morning per nursing), SANDRA w/ some bloody/serosanguineous drainage : no davis MSK/Neuro: no focal deficit, follows commands, no slurred speech Psych: AOx3, cooperative with exam Results & Data Results & Data Vital Signs (Past 12 Hours) Vital Signs Temp Pulse Resp BP Pulse Ox O2 Del Method 01/17/23 07:18 36.9 C 70 18 97/56 L 95 Room Air Laboratory Results 01/17/23 01/17/23 01/17/23 Range/Units 08:05 06:55 06:55 WBC 6.92 (4.8-10.8) K/ul RBC 3.47 L (4.70-6.10) M/uL Hgb 10.8 L (14.0-18.0) g/dl Hct 31.7 L (42.0-52.0) % MCV 91.4 (80.0-100.0) fL MCH 31.1 (25.0-34.0) pg MCHC 34.1 (32.0-36.0) g/dL RDW Std Deviation 43.9 (36.4-46.3) fL RDW Coeff of Humberto 13.1 (11.5-14.5) % Plt Count 129 L (130-400) K/uL MPV 9.6 (9.4-12.4) fL Immature Gran % (Auto) 0.3 % Neut % (Auto) 77.2 % Lymph % (Auto) 14.0 % Bennett % (Auto) 5.9 % Eos % (Auto) 2.0 % Baso % (Auto) 0.6 % Neut # (Auto) 5.34 (1.40-6.50) K/uL Lymph # (Auto) 0.97 L (1.2-3.4) K/uL Bennett # (Auto) 0.41 (0.11-0.59) K/uL Eos # (Auto) 0.14 (0-0.50) K/uL Baso # (Auto) 0.04 (0-0.2) K/uL Immature Gran # (Auto) 0.02 (0.01-0.20) K/uL Sodium 140 (136-145) mmol/L Potassium 4.0 (3.5-5.1) mmol/L Chloride 104 (98-107) mmol/L Carbon Dioxide 31 (21-32) mmol/L Anion Gap 5 (3-11) BUN 12 (6-23) mg/dl Creatinine 0.70 (0.6-1.4) mg/dl Est Cr Clr Drug Dosing 121.8 ml/min Est GFR ( Amer) 115.6 ml/min Est GFR (Non-Af Amer) 99.7 ml/min BUN/Creatinine Ratio 17.1 (10-20) Glucose 163 H (70-99(Fasting)) mg/dl POC Glucose 155 H (70-99) mg/dl Calcium 8.6 (8.6-10.3) mg/dl Magnesium 1.7 (1.7-2.4) mg/dl Iron 18 L (35-175) mcg/dl TIBC 237 L (250-450) mcg/dl Unsaturated IBC 219 (155-355) mcg/dl Transferrin % Sat 8 L (20-50) % Ferritin 126.3 (8-388) ng/ml Urine Color Urine Appearance (Clear) Urine pH (4.5-7.5) Ur Specific [place] (1.000-1.030) Urine Protein (Negative) Urine Glucose (UA) (Negative) Urine Ketones (Negative) Urine Blood (Negative) Urine Nitrite (Negative) Urine Bilirubin (Negative) Urine Urobilinogen (Negative) Ur Leukocyte Esterase (Negative) Urine WBC (Auto) (0-5) /hpf Urine RBC (Auto) (0-4) /hpf U Hyaline Cast (Auto) (0-5) /lpf U Epithel Cells (Auto) (0-5) /lpf Urine Bacteria (Auto) (Negative) Urine Yeast 01/16/23 01/16/23 01/16/23 Range/Units Unknown 20:06 17:13 WBC (4.8-10.8) K/ul RBC (4.70-6.10) M/uL Hgb (14.0-18.0) g/dl Hct (42.0-52.0) % MCV (80.0-100.0) fL MCH (25.0-34.0) pg MCHC (32.0-36.0) g/dL RDW Std Deviation (36.4-46.3) fL RDW Coeff of Humberto (11.5-14.5) % Plt Count (130-400) K/uL MPV (9.4-12.4) fL Immature Gran % (Auto) % Neut % (Auto) % Lymph % (Auto) % Bennett % (Auto) % Eos % (Auto) % Baso % (Auto) % Neut # (Auto) (1.40-6.50) K/uL Lymph # (Auto) (1.2-3.4) K/uL Bennett # (Auto) (0.11-0.59) K/uL Eos # (Auto) (0-0.50) K/uL Baso # (Auto) (0-0.2) K/uL Immature Gran # (Auto) (0.01-0.20) K/uL Sodium (136-145) mmol/L Potassium (3.5-5.1) mmol/L Chloride (98-107) mmol/L Carbon Dioxide (21-32) mmol/L Anion Gap (3-11) BUN (6-23) mg/dl Creatinine (0.6-1.4) mg/dl Est Cr Clr Drug Dosing ml/min Est GFR ( Amer) ml/min Est GFR (Non-Af Amer) ml/min BUN/Creatinine Ratio (10-20) Glucose (70-99(Fasting)) mg/dl POC Glucose 185 H 100 H (70-99) mg/dl Calcium (8.6-10.3) mg/dl Magnesium (1.7-2.4) mg/dl Iron (35-175) mcg/dl TIBC (250-450) mcg/dl Unsaturated IBC (155-355) mcg/dl Transferrin % Sat (20-50) % Ferritin (8-388) ng/ml Urine Color Clark Urine Appearance Cloudy A (Clear) Urine pH 7.0 (4.5-7.5) Ur Specific [place] 1.009 (1.000-1.030) Urine Protein 2+ H (Negative) Urine Glucose (UA) 2+ H (Negative) Urine Ketones Negative (Negative) Urine Blood 3+ H (Negative) Urine Nitrite Positive A (Negative) Urine Bilirubin Negative (Negative) Urine Urobilinogen Negative (Negative) Ur Leukocyte Esterase 3+ H (Negative) Urine WBC (Auto) >30 H (0-5) /hpf Urine RBC (Auto) 5-10 H (0-4) /hpf U Hyaline Cast (Auto) 1-5 (0-5) /lpf U Epithel Cells (Auto) 20-30 H (0-5) /lpf Urine Bacteria (Auto) 1+ H (Negative) Urine Yeast Not Reportable 01/16/23 Range/Units 12:07 WBC (4.8-10.8) K/ul RBC (4.70-6.10) M/uL Hgb (14.0-18.0) g/dl Hct (42.0-52.0) % MCV (80.0-100.0) fL MCH (25.0-34.0) pg MCHC (32.0-36.0) g/dL RDW Std Deviation (36.4-46.3) fL RDW Coeff of Humberto (11.5-14.5) % Plt Count (130-400) K/uL MPV (9.4-12.4) fL Immature Gran % (Auto) % Neut % (Auto) % Lymph % (Auto) % Bennett % (Auto) % Eos % (Auto) % Baso % (Auto) % Neut # (Auto) (1.40-6.50) K/uL Lymph # (Auto) (1.2-3.4) K/uL Bennett # (Auto) (0.11-0.59) K/uL Eos # (Auto) (0-0.50) K/uL Baso # (Auto) (0-0.2) K/uL Immature Gran # (Auto) (0.01-0.20) K/uL Sodium (136-145) mmol/L Potassium (3.5-5.1) mmol/L Chloride (98-107) mmol/L Carbon Dioxide (21-32) mmol/L Anion Gap (3-11) BUN (6-23) mg/dl Creatinine (0.6-1.4) mg/dl Est Cr Clr Drug Dosing ml/min Est GFR ( Amer) ml/min Est GFR (Non-Af Amer) ml/min BUN/Creatinine Ratio (10-20) Glucose (70-99(Fasting)) mg/dl POC Glucose 199 H (70-99) mg/dl Calcium (8.6-10.3) mg/dl Magnesium (1.7-2.4) mg/dl Iron (35-175) mcg/dl TIBC (250-450) mcg/dl Unsaturated IBC (155-355) mcg/dl Transferrin % Sat (20-50) % Ferritin (8-388) ng/ml Urine Color Urine Appearance (Clear) Urine pH (4.5-7.5) Ur Specific [place] (1.000-1.030) Urine Protein (Negative) Urine Glucose (UA) (Negative) Urine Ketones (Negative) Urine Blood (Negative) Urine Nitrite (Negative) Urine Bilirubin (Negative) Urine Urobilinogen (Negative) Ur Leukocyte Esterase (Negative) Urine WBC (Auto) (0-5) /hpf Urine RBC (Auto) (0-4) /hpf U Hyaline Cast (Auto) (0-5) /lpf U Epithel Cells (Auto) (0-5) /lpf Urine Bacteria (Auto) (Negative) Urine Yeast PG Care Time/CCT Total # of Minutes Spent Total Time Spent with Patient: Total time spent is greater than 50% in coordination of care (as documented) at patient's floor/unit and/or counseling patient: Coding Level of Care Code 15123 SUB INP/OBS CARE 2/35MIN Diagnoses Status post laparoscopic-assisted sigmoidectomy Z90.49 HTN (hypertension) I10 Colon cancer C18.9 H/O thrombocytopenia Z86.2 Diabetes mellitus type 2, uncontrolled E11.65 Hypothyroid E03.9
[2023-01-17 07:53] LABS: BUN Creatinine Ratio 17.1 (10-20); Calcium 8.6 mg/dl (8.6-10.3); Creatinine Clr Calc Pharmacy 121.8 ml/min; Est GFR (African American) 115.6 ml/min; Est GFR (Non-African American) 99.7 ml/min; Magnesium 1.7 mg/dl (1.7-2.4)
[2023-01-17 08:12] LABS: Ferritin 126.3 ng/ml (8-388)
[2023-01-17] MEDS: PANTOprazole 40 MG TAB PO SCH ×2 (08:58→20:07)
[2023-01-17] MEDS: ENOXAPARIN INJ 40 MG/0.4 ML SYR SQ SCH (08:59)
[2023-01-17] MEDS: INSULIN ASPART PER UNIT CHARGE SC SCH ×4 (09:04→20:50)
[2023-01-17] MEDS ORDERED: MAGNESIUM SULFATE / D5W 1 GM/100 ML BAG IV ONE (10:30)
--- NOTE | 2023-01-17 11:23 | Surgery Progress Note ---
I have seen and examined this patient with the surgical PA, I agree with this plan. Date of Service January 17, 2023 Assessment & Plan (1) S/P colon resection: Plan: 01/17/2023 POD #5 s/p Lap sigmoid resection with umbilical hernia repair. He is doing well. Pain is well-controlled. He has started moving his bowels and continues to pass flatus. Incisions are healing well with no signs of infection. H and H stable. WBC within normal limits. SANDRA drain output has turned serous- still with higher output. Will continue to keep with plans to remove prior to discharge. Urine culture positive- patient started on Rocephin. Antibiotics per primary team. Sensitivities pending. Logan would feel more comfortable staying one more night. Dr. Wilder will return tomorrow for possible discharge. Patient seen and examined with Dr. Harvey. 01/16/2023 POD #4 s/p Lap sigmoid resection with umbilical hernia repair. He is doing well. Pain is well-controlled. He has started moving his bowels and continues to pass flatus. Incisions are healing well with no signs of infection. Drain output is slightly bloody today and patient has had a slight drop in Hgb. Will repeat H and H tomorrow morning. Will advance diet to low fiber, carb consistent, DM2. Patient did report some blood in urine- urine culture ordered by hospitalist. Would recommend outpatient urology follow-up. Possible discharge tomorrow pending AM labs. Patient see and examined with Dr. Harvey. 01/15/2023 Doing well postoperative day #3 We will advance to full liquids although we cautioned him about going slowly Can advance diet further after return of bowel function Pathology still pending Dr. Yocasta Carballo covering for the weekend Admission and Anticipated Discharge Date Admission Date: January 12, 2023 Irina Ford is sitting in chair at bedside. He reports that he is doing well. Reports some continued abdominal pain, but that does continue to improve. Urine culture Review of Systems Constitutional: no fever and no chills Respiratory: no cough and no dyspnea Cardiovascular: no chest pain, no chest pain at rest, no chest pain with activity and no dyspnea Physical Exam Physical Exam: Abdominal incisions are clean, dry, intact and well-approximated with no signs of infection. SANDRA drain in place with serous output. Output increased over the weekend. Will continue to keep until ready for discharge. Constitutional: WD/WN, vitals as above Respiratory: normal respiratory effort; no respiratory distress and no labored breathing Results & Data Vital Signs (Past 12 Hours) Vital Signs Temp Pulse Resp BP Pulse Ox O2 Del Method 01/17/23 07:18 36.9 C 70 18 97/56 L 95 Room Air PG Care Time/CCT Total # of Minutes Spent Total Time Spent with Patient: Total time spent is greater than 50% in coordination of care (as documented) at patient's floor/unit and/or counseling patient: Coding Level of Care Code 34146 Post Operative Follow-Up Diagnoses S/P colon resection Z90.49
[2023-01-17] MEDS: cefTRIAXone SODIUM 2,000 MG in DEXTROSE 5% 50 ML IV SCH (14:47)
[2023-01-17] MEDS: LANTUS PER UNIT CHARGE SC SCH (17:56)
[2023-01-18] MEDS: LEVOTHYROXINE SODIUM 25 MCG TABLET PO SCH (05:56)
--- NOTE | 2023-01-18 07:33 | Hospitalist Progress Note ---
Date of Service January 18, 2023 Assessment & Plan (1) Status post laparoscopic-assisted sigmoidectomy: Plan: POD#6 s/p Laparoscopic Sigmoid Colon Resection, Repair Umbilical Hernia(Not Applicable) - Jono Wilder DO. EBL 200cc. 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 Path pending from OR WBC wnl, afebrile Hgb drop post op on continuous IVF/SANDRA output however has slowed and hgb improved on repeat labs (hematuria resolving with tx UTI but needing Urology f/u at dc for eval bladder ca given family hx and prior hematuria) Pain control/antiemetics prn +BM 01/15, passing gas -- diet per surgery PPI BID - consider continuing BID at discharge Lovenox SQ for DVT prophylaxis Urine cx w/ GNB, discussed w/ micro and should have identification -- on Ceftriaxone IV currently Patient w/ increased gas pains/bloating, lack of BM since 01/15. Discussed to hold off eating anything further, surgery to be by to see him. KUB ordered -- not yet read but appears with significantly dilated loops of bowels/hypoactive bowel sounds on exam and suspect ileus vs obstruction. RN alerted to keep patient NPO in meantime until eval by surgery. Start IVF @ 100cc/hr in the meantime until eval by surgery but appears having post-op ileus (2) HTN (hypertension): Plan: BP stable but was borderline and decision to hold lisinopril, jones given likely ileus vs obstruction today (3) Colon cancer: Plan: Reason for sigmoidectomy states already has appt heme/onc at end of this month (4) H/O thrombocytopenia: Plan: Has been ongoing for 20 + years, follows with hematology and had been on BID iron since April 2022 w/ 50lb weight loss (intential reported to attempt to get his DM under control) No family hx colon ca. Now w/ adenocarcinoma s/p resection CBC w/ drop in hgb as above, improved on repeat and improved to 11.4 Iron studies pending w/ AM labs (on PO Fe BID at home) -- consider venofer IV (5) Diabetes mellitus type 2, uncontrolled: Plan: A1c 5.1 most recent check -- WELL CONTROLLED (on metformin 1gm BID, pioglitazone 30mg, glimepiride 4mg daily at home) Pharmacy glycemic control consult already placed with orders in Continue to follow Pharmacy's recommendations BSGs acceptable (6) Hypothyroid: Plan: Continue levothyroxine 25mcg Last TSH in system slightly elevated -- consider repeating w/ PCP after discharge in follow-up Plan Thank you for allowing hospitalist service to participate in the care of Mr Mills. Now w/ post-op ileus vs obstruction, KUB official read pending Hospitalist service to follow along. Please call w/ questions or concerns. Admission and Anticipated Discharge Date Admission Date: January 12, 2023 Supervising Physician Co-Signing Physician Notes The patient was not seen by me. The chart was reviewed. Case discussed with ADAM Wyatt. Agree with assessment and plan Subjective Evaluated this morning, had been doing well but this morning feeling a little clammy getting up to the bathroom. No chest pain/shortness of breath/dizziness, BSG 143. Passing a little gas but having increased bloating/gas pain. No further BM since 01/15. Discussed checking KUB given slowed bowel sounds and messaged general surgery but may need to monitor overnight/back down on diet. Will defer dispo to primary team if symptoms improved/flatus/bowel sounds improved. Discussed holding off on further PO intake until KUB obtained and read -- he agrees and is not particularly hungry. Labs pending from this morning but discussed should have micro for identification this morning and could consider discharge. Review of Systems Review of Systems: All systems reviewed & are unremarkable except as noted in HPI & below Physical Exam Physical Exam: General: WD male sitting up in bed, mildly uncomfortable appearing but no acute distress HEENT: head normocephalic, atraumatic, mmm, trachea midline, no deviation Resp: CTA, no w/c/r, on room air 96% CV: RRR, no significant m/r/g, no pitting edema/calf tenderness GI: more hypoactive bowel sounds throughout, increased distension, tender to palpation around incisions but also mild generalized tenderness, no rigidity/warmth. incision sites look alright, RLQ site w/ some surrounding irritation, SANDRA w/ continued drainage : no davis MSK/Neuro: no focal deficit, follows commands, no slurred speech Psych: AOx3, cooperative with exam Results & Data Results & Data Vital Signs (Past 12 Hours) Vital Signs Temp Pulse Resp BP Pulse Ox O2 Del Method 01/17/23 20:55 36.9 C 84 16 127/72 94 Room Air Laboratory Results 01/17/23 01/17/23 01/17/23 Range/Units 20:41 17:04 12:00 WBC (4.8-10.8) K/ul RBC (4.70-6.10) M/uL Hgb (14.0-18.0) g/dl Hct (42.0-52.0) % MCV (80.0-100.0) fL MCH (25.0-34.0) pg MCHC (32.0-36.0) g/dL RDW Std Deviation (36.4-46.3) fL RDW Coeff of Humberto (11.5-14.5) % Plt Count (130-400) K/uL MPV (9.4-12.4) fL Immature Gran % (Auto) % Neut % (Auto) % Lymph % (Auto) % Morgan % (Auto) % Eos % (Auto) % Baso % (Auto) % Neut # (Auto) (1.40-6.50) K/uL Lymph # (Auto) (1.2-3.4) K/uL Morgan # (Auto) (0.11-0.59) K/uL Eos # (Auto) (0-0.50) K/uL Baso # (Auto) (0-0.2) K/uL Immature Gran # (Auto) (0.01-0.20) K/uL Sodium (136-145) mmol/L Potassium (3.5-5.1) mmol/L Chloride (98-107) mmol/L Carbon Dioxide (21-32) mmol/L Anion Gap (3-11) BUN (6-23) mg/dl Creatinine (0.6-1.4) mg/dl Est Cr Clr Drug Dosing ml/min Est GFR ( Amer) ml/min Est GFR (Non-Af Amer) ml/min BUN/Creatinine Ratio (10-20) Glucose (70-99(Fasting)) mg/dl POC Glucose 191 H 109 H 154 H (70-99) mg/dl Calcium (8.6-10.3) mg/dl Magnesium (1.7-2.4) mg/dl Iron (35-175) mcg/dl TIBC (250-450) mcg/dl Unsaturated IBC (155-355) mcg/dl Transferrin % Sat (20-50) % Ferritin (8-388) ng/ml 01/17/23 01/17/23 01/17/23 Range/Units 08:05 06:55 06:55 WBC 6.92 (4.8-10.8) K/ul RBC 3.47 L (4.70-6.10) M/uL Hgb 10.8 L (14.0-18.0) g/dl Hct 31.7 L (42.0-52.0) % MCV 91.4 (80.0-100.0) fL MCH 31.1 (25.0-34.0) pg MCHC 34.1 (32.0-36.0) g/dL RDW Std Deviation 43.9 (36.4-46.3) fL RDW Coeff of Humberto 13.1 (11.5-14.5) % Plt Count 129 L (130-400) K/uL MPV 9.6 (9.4-12.4) fL Immature Gran % (Auto) 0.3 % Neut % (Auto) 77.2 % Lymph % (Auto) 14.0 % Morgan % (Auto) 5.9 % Eos % (Auto) 2.0 % Baso % (Auto) 0.6 % Neut # (Auto) 5.34 (1.40-6.50) K/uL Lymph # (Auto) 0.97 L (1.2-3.4) K/uL Morgan # (Auto) 0.41 (0.11-0.59) K/uL Eos # (Auto) 0.14 (0-0.50) K/uL Baso # (Auto) 0.04 (0-0.2) K/uL Immature Gran # (Auto) 0.02 (0.01-0.20) K/uL Sodium 140 (136-145) mmol/L Potassium 4.0 (3.5-5.1) mmol/L Chloride 104 (98-107) mmol/L Carbon Dioxide 31 (21-32) mmol/L Anion Gap 5 (3-11) BUN 12 (6-23) mg/dl Creatinine 0.70 (0.6-1.4) mg/dl Est Cr Clr Drug Dosing 121.8 ml/min Est GFR ( Amer) 115.6 ml/min Est GFR (Non-Af Amer) 99.7 ml/min BUN/Creatinine Ratio 17.1 (10-20) Glucose 163 H (70-99(Fasting)) mg/dl POC Glucose 155 H (70-99) mg/dl Calcium 8.6 (8.6-10.3) mg/dl Magnesium 1.7 (1.7-2.4) mg/dl Iron 18 L (35-175) mcg/dl TIBC 237 L (250-450) mcg/dl Unsaturated IBC 219 (155-355) mcg/dl Transferrin % Sat 8 L (20-50) % Ferritin 126.3 (8-388) ng/ml PG Care Time/CCT Total # of Minutes Spent Total Time Spent with Patient: Total time spent is greater than 50% in coordination of care (as documented) at patient's floor/unit and/or counseling patient: Coding Level of Care Code 32617 SUB INP/OBS CARE 3/50MIN Diagnoses Status post laparoscopic-assisted sigmoidectomy Z90.49 HTN (hypertension) I10 Colon cancer C18.9 H/O thrombocytopenia Z86.2 Diabetes mellitus type 2, uncontrolled E11.65 Hypothyroid E03.9
[2023-01-18 07:53] LABS: Hematocrit (blood only) 34.4 % (42.0-52.0); Hemoglobin 11.4 g/dl (14.0-18.0); Mean Corpuscular Hemoglobin 30.9 pg (25.0-34.0); Mean Corpuscular Hgb Conc 33.1 g/dL (32.0-36.0); Mean Corpuscular Volume 93.2 fL (80.0-100.0); Mean Platelet Volume 9.4 fL (9.4-12.4); Platelet Count 150 K/uL (130-400); RDW Coefficient of Variation 12.8 % (11.5-14.5); RDW Standard Deviation 43.8 fL (36.4-46.3); Red Blood Count 3.69 M/uL (4.70-6.10)
[2023-01-18 08:04] LABS: BUN Creatinine Ratio 17.1 (10-20); Calcium 8.8 mg/dl (8.6-10.3); Creatinine Clr Calc Pharmacy 121.8 ml/min; Est GFR (African American) 115.6 ml/min; Est GFR (Non-African American) 99.7 ml/min; Magnesium 1.8 mg/dl (1.7-2.4)
[2023-01-18] MEDS ORDERED: SODIUM CHLORIDE 0.9% 1000ML 1,000 ML IV SCH (08:15)
[2023-01-18] MEDS: INSULIN ASPART PER UNIT CHARGE SC SCH ×4 (08:29→21:22)
[2023-01-18] MEDS: ENOXAPARIN INJ 40 MG/0.4 ML SYR SQ SCH (08:30)
[2023-01-18] MEDS: PANTOprazole 40 MG TAB PO SCH ×2 (08:31→21:24)
[2023-01-18] MEDS ORDERED: MAGNESIUM SULFATE / D5W 1 GM/100 ML BAG IV ONE (08:32)
--- NOTE | 2023-01-18 08:44 | XRay Report ---
KUB HISTORY: ?ileus, increased abd bloating/gas pain COMPARISON: Abdomen and pelvis CT 12/28/2002. FINDINGS: There is a surgical drain seen within the midabdomen. Suture material noted within the pelv is. Dilated gas and stool-filled colon which measure up to 9 cm in diameter with in the transverse co felix. There are few mildly dilated gas-filled loops of small bowel. This favors a postoperative ileus. However, there is no gas within the distal sigmoid colon/rectum. Therefore, a developing large bowel obstruction would also be considered in the differential diagnosis. Continued follow-up recommended. No renal calculi. No ureteral calculi. No pneumoperitoneum or pneumatosis. IMPRESSION: 1. Dilated gas-filled loops of large and small bowel seen within the abdomen which favors a postopera tive ileus. However, there is no gas identified within the distal colon/rectum. Therefore, a developi ng distal large bowel obstruction remains in the differential diagnosis. Continued follow-up recommen ded. 2. There is a surgical drain within the midabdomen. ACT 112: Negative or not required by law. Electronically signed by: Yogesh [place] M.D. 01/18/2023 8:42 AM
--- NOTE | 2023-01-18 11:28 | Surgery Progress Note ---
Date of Service January 18, 2023 Assessment & Plan (1) S/P colon resection: Plan: KUB today does show some dilated bowel but this is not unexpected following the scope of his surgery. We are basically waiting for return of bowel function. I will back his diet down a little bit we will monitor him another 24 hours. I still expect discharge within the next 24 to 48 hours. Pathology still pending Admission and Anticipated Discharge Date Admission Date: January 12, 2023 Subjective Patient seen. He was doing great over the weekend but this morning had a little clammy feeling which he states is how he normally is when his sugars go low. He denies any nausea. He did have a bowel movement over the weekend Physical Exam Physical Exam: Alert and oriented no acute distress His incisions look good Abdomen is soft with minimal/expected incisional tenderness Results & Data Vital Signs (Past 12 Hours) Vital Signs Temp Pulse Resp BP Pulse Ox O2 Del Method 01/18/23 07:32 37.0 C 80 16 105/64 96 Room Air PG Care Time/CCT Total # of Minutes Spent Total Time Spent with Patient: Total time spent is greater than 50% in coordination of care (as documented) at patient's floor/unit and/or counseling patient: Coding Level of Care Code 99469 Post Operative Follow-Up Diagnoses S/P colon resection Z90.49
--- NOTE | 2023-01-18 14:49 | Pharmacy Report ---
Pharmacy Glycemic Short Note 2 - Date of Service January 18, 2023 - Glycemic Short BSG Results (Last 24 hours): 01/17/23 01/17/23 01/18/23 17:04 20:41 07:08 Glucose 163 H POC Glucose 109 H 191 H 01/18/23 01/18/23 07:29 11:53 Glucose POC Glucose 143 H 180 H OUTPATIENT ANTIDIABETIC REGIMEN: * Metformin 1000 mg PO BID * Glimepiride 4 mg PO AM * Pioglitazone 30 mg PO AM * HbA1c: 5.1% (10/14/22) ASSESSMENT: 01/16/23 * BSGs yesterday were 560-853-496-191 mg/dL. Patient received 29 units (10 units of basal and 19 units of bolus). * BSGs today are 143-180 mg/dL. * Continue Lantus 10 units with dinner. * Patient appears to overcorrect. Loosen CF and tighten CR. 01/15/23 * Patient's BSGs yesterday were 825-621-600-112 mg/dL. Patient received 30 units of insulin (15 units of basal and 15 units of bolus). * D5@ 80 mLs/hr was d/c'ed this AM. * BSGs today are 184-139 mg/dL. * Since D5 infusion stopped, will have a lower dose of Lantus available in case BSGs continue to trend downwards. * Continue Novolog. 01/14/23 * BSGs yesterday were 155-402-765-191 mg/dL. Patient received 2 units of Novolog. * Patient was started on D5 @125 mL/hr yesterday. This was reduced to 80 mL/hr today. * BSGs today are 165-219 mg/dL. * Hesitate to begin Lantus since elevated BSGs secondary to dextrose infusion. Patient most likely does have basal needs as he is on three oral agents. Since diet began at lunch and tolerated today. Will give 15 units (half weight-based stress of 2) with dinner. * Novolog weight-based stress 2-3. Tightened this morning due to climbing BSGs from dextrose fluids. Background * 62 yo M admitted on 01/12/23 following a sigmoid colon resection and hernia repair. Pharmacy has been consulted to assist with inpatient glycemic management. Patient is a well controlled Type 2 diabetic as an outpatient. Please refer to outpatient regimen and most recent HbA1c above. * Preop BSG 105 mg/dL. Postop BSG is 129 mg/dL. * Received 12 mg of IV dexamethasone perioperatively. Currently NPO. * Will not order any basal insulin at this time given postop BSG and NPO status. Starting Novolog based on weight/stress of 2. PLAN FOR INPATIENT GLYCEMIC CONTROL: * Hold outpatient oral diabetes medications * Basal insulin * Lantus 10 units SQ with dinner * Bolus insulin * NovoLog per scale ACHS or Q6hrs while NPO * Goal Range: Low 110 mg/dL - High 140 mg/dL * Correction Factor: 40 mg/dL/unit * Nutritional / Prandial insulin per carb ratio of 1 unit per 8 grams CHO consumed
[2023-01-18] MEDS: cefTRIAXone SODIUM 2,000 MG in DEXTROSE 5% 50 ML IV SCH (15:51)
[2023-01-18] MEDS ORDERED: LANTUS PER UNIT CHARGE SC SCH (16:30)
[2023-01-19] MEDS: LEVOTHYROXINE SODIUM 25 MCG TABLET PO SCH (05:39)
[2023-01-19 07:43] LABS: Hematocrit (blood only) 34.1 % (42.0-52.0); Hemoglobin 11.4 g/dl (14.0-18.0); Mean Corpuscular Hemoglobin 30.9 pg (25.0-34.0); Mean Corpuscular Hgb Conc 33.4 g/dL (32.0-36.0); Mean Corpuscular Volume 92.4 fL (80.0-100.0); Mean Platelet Volume 9.1 fL (9.4-12.4); Platelet Count 178 K/uL (130-400); RDW Coefficient of Variation 12.8 % (11.5-14.5); RDW Standard Deviation 43.7 fL (36.4-46.3); Red Blood Count 3.69 M/uL (4.70-6.10); White Blood Count 8.56 K/ul (4.8-10.8)
[2023-01-19 08:17] LABS: BUN Creatinine Ratio 14.7 (10-20); Calcium 8.9 mg/dl (8.6-10.3); Creatinine Clr Calc Pharmacy 125.4 ml/min; Est GFR (Non-African American) 100.9 ml/min; Magnesium 1.9 mg/dl (1.7-2.4); Potassium 4.1 mmol/L (3.5-5.1)
--- NOTE | 2023-01-19 08:22 | Hospitalist Progress Note ---
Date of Service January 19, 2023 Assessment & Plan (1) Status post laparoscopic-assisted sigmoidectomy: Plan: POD#6 s/p Laparoscopic Sigmoid Colon Resection, Repair Umbilical Hernia(Not Applicable) w Jono Wilder DO. EBL 200cc. 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 Path pending from OR --> now w/ adenocarcinoma, metastatic carcinoma in 112 lymph nodes F/u the f/ heme/onc already in place Hgb imrpoved on repeat WBC wnl/afebrile +BM overnight, diet advanced per surgery Lovenox SQ while inpatient for DVT prophylaxis CM navigator to arrange f/u Urology. Brother w/ bladder ca, hematuria reported but improved since abx treatment for uti but needs f/u for eval jones given +nodes on path Urine cx grew morganella morganii --> placed on IV ceftriaxone initially but can dc on PO fluoroquinolone as discussed w/ primary service yesterday. Plan for 7 day course minus what given in hospital (can continue 3 days if gets IV dose prior to dc) Planning d/c after lunch advancement if no issues. Encouraged taking it slow. RN to give info for low fiber diet. (2) HTN (hypertension): Plan: BP stable, can resume lisinopril at dc (3) Colon cancer: Plan: Reason for sigmoidectomy states already has appt heme/onc at end of this month (4) H/O thrombocytopenia: Plan: Has been ongoing for 20 + years, follows with hematology and had been on BID iron since April 2022 w/ 50lb weight loss (intential reported to attempt to get his DM under control) No family hx colon ca. Now w/ adenocarcinoma s/p resection CBC w/ drop in hgb as above, improved on repeat and improved to 11.4 Iron studies pending w/ AM labs (on PO Fe BID at home) -- consider venofer IV outpt f/u heme/onc (5) Diabetes mellitus type 2, uncontrolled: Plan: A1c 5.1 most recent check -- WELL CONTROLLED (on metformin 1gm BID, pioglitazone 30mg, glimepiride 4mg daily at home) Pharmacy glycemic control consult already placed with orders in Continue to follow Pharmacy's recommendations BSGs acceptable (6) Hypothyroid: Plan: Continue levothyroxine 25mcg Last TSH in system slightly elevated -- consider repeating w/ PCP after discharge in follow-up Plan Thank you for allowing hospitalist service to participate in the care of Mr Mills. Rec to complete 7 day course abx for UTI F/u urology at d/c Hospitalist service will sign off as long as advancement of diet goes ok/discharge. Please call with any questions/concerns. Admission and Anticipated Discharge Date Admission Date: January 12, 2023 Subjective patient evaluated this morning, appearing and reporting much improved compared to yesterday morning. was given IVF/rest and advanced to clears yesterday, SANDRA drain removed. Moved bowels overnight. Passing lots more gas today as well. Per surgery, advancing diet and possible dc after lunch. Reviewed taking it slow/low fiber and advancement w/ patient and to alert of any decreased flatus/increased pain but otherwise going to dc after lunch. no fever/chills, chest pain, shortness of breath. Questions/concerns addressed at this time. Physical Exam Physical Exam: General: WD male sitting up in bed, much improved compared to prior, NAD HEENT: head normocephalic, atraumatic, mmm, trachea midline, no deviation Resp: CTA, no w/c/r, on room air CV: RRR, no significant m/r/g, no pitting edema/calf tenderness GI: +BS throughout, SANDRA drain since removed, incisions c/d/i, no active warmth/erythema, appropriately tender to palpation around incisions (much less), no guarding/rigidity MSK/Neuro: no focal deficit, follows commands, no slurred speech Psych: AOx3, cooperative with exam Results & Data Results & Data Vital Signs (Past 12 Hours) Vital Signs Temp Pulse Resp BP BP Pulse Ox O2 Del Method 01/19/23 07:16 36.6 C 78 16 110/64 95 Room Air 01/18/23 20:49 37.5 C 71 16 114/75 97 Room Air Laboratory Results 01/19/23 01/19/23 01/19/23 Range/Units 08:09 07:05 07:05 WBC 8.56 (4.8-10.8) K/ul RBC 3.69 L (4.70-6.10) M/uL Hgb 11.4 L (14.0-18.0) g/dl Hct 34.1 L (42.0-52.0) % MCV 92.4 (80.0-100.0) fL MCH 30.9 (25.0-34.0) pg MCHC 33.4 (32.0-36.0) g/dL RDW Std Deviation 43.7 (36.4-46.3) fL RDW Coeff of Humberto 12.8 (11.5-14.5) % Plt Count 178 (130-400) K/uL MPV 9.1 L (9.4-12.4) fL Sodium 138 (136-145) mmol/L Potassium 4.1 (3.5-5.1) mmol/L Chloride 103 (98-107) mmol/L Carbon Dioxide 28 (21-32) mmol/L Anion Gap 7 (3-11) BUN 10 (6-23) mg/dl Creatinine 0.68 (0.6-1.4) mg/dl Est Cr Clr Drug Dosing 125.4 ml/min Est GFR ( Amer) 117.0 ml/min Est GFR (Non-Af Amer) 100.9 ml/min BUN/Creatinine Ratio 14.7 (10-20) Glucose 146 H (70-99(Fasting)) mg/dl POC Glucose 150 H (70-99) mg/dl Calcium 8.9 (8.6-10.3) mg/dl Magnesium 1.9 (1.7-2.4) mg/dl 01/18/23 01/18/23 01/18/23 Range/Units 20:43 16:52 11:53 WBC (4.8-10.8) K/ul RBC (4.70-6.10) M/uL Hgb (14.0-18.0) g/dl Hct (42.0-52.0) % MCV (80.0-100.0) fL MCH (25.0-34.0) pg MCHC (32.0-36.0) g/dL RDW Std Deviation (36.4-46.3) fL RDW Coeff of Humberto (11.5-14.5) % Plt Count (130-400) K/uL MPV (9.4-12.4) fL Sodium (136-145) mmol/L Potassium (3.5-5.1) mmol/L Chloride (98-107) mmol/L Carbon Dioxide (21-32) mmol/L Anion Gap (3-11) BUN (6-23) mg/dl Creatinine (0.6-1.4) mg/dl Est Cr Clr Drug Dosing ml/min Est GFR ( Amer) ml/min Est GFR (Non-Af Amer) ml/min BUN/Creatinine Ratio (10-20) Glucose (70-99(Fasting)) mg/dl POC Glucose 119 H 138 H 180 H (70-99) mg/dl Calcium (8.6-10.3) mg/dl Magnesium (1.7-2.4) mg/dl Diagnostic Findings KUB X-Ray 01/18/23 07:59 KUB HISTORY: ?ileus, increased abd bloating/gas pain COMPARISON: Abdomen and pelvis CT 12/28/2002. FINDINGS: There is a surgical drain seen within the midabdomen. Suture material noted within the pelvis. Dilated gas and stool-filled colon which measure up to 9 cm in diameter with in the transverse colon. There are few mildly dilated gas- filled loops of small bowel. This favors a postoperative ileus. However, there is no gas within the distal sigmoid colon/rectum. Therefore, a developing large bowel obstruction would also be considered in the differential diagnosis. Contin ued follow-up recommended. No renal calculi. No ureteral calculi. No pneumoperitoneum or pneumatosis. IMPRESSION: 1. Dilated gas-filled loops of large and small bowel seen within the abdomen wh ich favors a postoperative ileus. However, there is no gas identified within the distal colon/rectum. Therefore, a developing distal large bowel obstruction remains in the differential diagnosis. Continued follow-up recommended. 2. There is a surgical drain within the midabdomen. ACT 112: Negative or not required by law. Electronically signed by: Yogesh Birmingham M.D. 01/18/2023 8:42 AM PG Care Time/CCT Total # of Minutes Spent Total Time Spent with Patient: Total time spent is greater than 50% in coordination of care (as documented) at patient's floor/unit and/or counseling patient: Coding Level of Care Code 87100 SUB INP/OBS CARE 3/50MIN Diagnoses Status post laparoscopic-assisted sigmoidectomy Z90.49 HTN (hypertension) I10 Colon cancer C18.9 H/O thrombocytopenia Z86.2 Diabetes mellitus type 2, uncontrolled E11.65 Hypothyroid E03.9
--- NOTE | 2023-01-19 08:34 | Surgery Progress Note ---
Date of Service January 19, 2023 Assessment & Plan (1) S/P colon resection: Plan: s/p sigmoid colon resection pt doing well. pain controlled. no n/v. passing gas and BMs will advance to low fiber, if tolerates well for bfast and lunch will dispo to home today complete course of abx for UTI pathology reviewed with pt by dr. arvizu appreciate hospitalists assistance w/ patient throughout his stay f/u in clinic within 1-2 weeks As above. Had large bowel movement and increased flatus. He feels much better. We will advance his diet if he does well potential home later this afternoon. We did discuss his pathology report. Admission and Anticipated Discharge Date Admission Date: January 12, 2023 Subjective Patient feeling well this AM. Pain controlled. Denies nausea/vomiting. Is passing gas and had another BM. Has been ambulating. Physical Exam Physical Exam: awake/alert, no distress Respiratory: normal respiratory effort Gastrointestinal (Abdomen): Inspection/Auscultation: + abdominal surgical incision (c/d/i. some surrounding ecchymosis) Percussion/Palpation: + abdomen tender (mild lizzeth incisional discomfort) and abdomen soft Results & Data Vital Signs (Past 12 Hours) Vital Signs Temp Pulse Resp BP BP Pulse Ox O2 Del Method 01/19/23 07:16 36.6 C 78 16 110/64 95 Room Air 01/18/23 20:49 37.5 C 71 16 114/75 97 Room Air PG Care Time/CCT Total # of Minutes Spent Total Time Spent with Patient: Total time spent is greater than 50% in coordination of care (as documented) at patient's floor/unit and/or counseling patient: Coding Level of Care Code 70544 Post Operative Follow-Up Diagnoses S/P colon resection Z90.49
[2023-01-19] MEDS: PANTOprazole 40 MG TAB PO SCH (09:39)
[2023-01-19] MEDS: ENOXAPARIN INJ 40 MG/0.4 ML SYR SQ SCH (09:39)
[2023-01-19] MEDS: INSULIN ASPART PER UNIT CHARGE SC SCH ×2 (10:22→13:17)
[2023-01-19] MEDS ORDERED: LANTUS PER UNIT CHARGE SC SCH (16:30)
--- NOTE | 2023-01-20 15:52 | Discharge Summary ---
Date of Service January 20, 2023 Principal Diagnosis sigmoid colon resection Discharge Exam alert/awake no distress Respiratory normal respiratory effort Gastrointestinal (Abdomen) Inspection/Auscultation: + abdominal surgical scar ((c/d/i. some surrounding ecchymosis)) Percussion/Palpation: + abdomen tender ((mild lizzeth incisional discomfort) and abdomen soft) Discharge Data Allergies Allergy/AdvReac Type Severity Reaction Status Date / Time atorvastatin [From Lipitor] Allergy Unknown LIVER ISSUE Verified 01/12/23 08:21 Consultations 01/12/23 14:31 Consult Hospitalist Routine Procedures Performed Operation Date: 01/12/23 10:00 Actual Procedures p Laparoscopic Sigmoid Colon Resection, Repair Umbilical Hernia(Not Applicable) - Jono Wilder DO Hospital Course (1) S/P colon resection: You had a sigmoid colon resection on 01/12/23. You were admitted to the hospital post operatively. Your diet was slowly advanced, and waiting return of bowel function. You were tolerating a low fiber diet on discharge day 01/19/23 and were being treated with a course of antibiotics for a UTI. You were instructed to follow up in the office in 2 weeks after discharge. Total Time Total Time Spent Total Time Spent (In Minutes): 15 Discharge Plan Discharge Items Patient Disposition: Home - Self-Care Reason For Visit: Colon Cancer, Umbilical Hernia Discharge Diagnosis: laparoscopic sigmoid colon resection Activity: As commented below Lifting: No more than 10 pounds Bathing Comment: No soaking in tubs, pools, hot tubs for 2 weeks Exercise/Sports: Wait until after follow-up appointment Driving/Machine Use: no driving while taking narcotics for pain Non-emergency contact: Surgeon Call non-emergency contact if: you have any medication questions, your symptoms worsen, your pain is not controlled, you have a fever, your temperature is above 101.5, your wound has increased redness, your wound has increased drainage and your wound pain has increased Follow-up/Referrals: Jono Wilder DO [Surgeon] - 02/02/23 11:45 am (call office for a follow up appointment in 2 weeks ) Elvia Sanchez MD [Primary Care Provider] - Tc Willis PA [Physician Hadoop Application Developer] - 01/27/23 10:30 am (Urology Please arrive 15 minutes prior to appointment time.) Lisa Fonseca MD [Physician] - 01/27/23 9:20 am Diet: Low Fiber Diet Comment: LOW FIBER, Diabetic Addtl Attending Provider Instructions: You have surgical glue called dermabond on your surgical site incisions. You may shower with this on. This will tend to come off within a couple of weeks. Do not pick at it. You will have small white bandages over your left lower incision called steri strips. You may shower with these on. They will tend to fall off on their own within 7-10 days. You can keep gauze and tape over your surgical drain site until it is healed. driving:No driving while taking narcotics for pain. Complete the full course of antibiotic prescribed to you for urinary infection Pending Studies at Discharge: Yes Studies:: surgical pathology Stand-Alone Forms: [facility] [employer], Pain - Opioid Pain Management, Smoking Cessation Medications and DC Order Prescriptions: New oxycodone-acetaminophen [Percocet] 5-325 mg tablet 1 - 2 tab PO .q4-6h PRN (Reason: pain, for initial therapy, max 6 tabs per day) Qty: 15 0RF ciprofloxacin HCl [Cipro] 500 mg tablet 500 mg PO BID 4 Days Qty: 8 0RF Continued (DME) blood-glucose meter [[email or web address] Ultra2 Meter] Kit See Rx Instructions .Route Qty: 1 0RF Rx Instructions: test 2 times daily (DME) pen needle, diabetic [BD Ultra-Fine Nancy Pen Needle] 32 gauge x 5/32" needle See Rx Instructions .ROUTE .MEDSUPPLY Qty: 100 2RF Rx Instructions: Use once daily with lantus ferrous sulfate 325 mg (65 mg iron) tablet 325 mg PO BID Qty: 180 1RF Sutab 1.479-0.188- 0.225 gram tablet See Rx Instructions PO .COMPLEX Qty: 24 0RF Rx Instructions: Take per split dose instructions. PLEASE USE COUPON BIN: [id number] PCN: [employer]#: [id number] (DME) OneTouch Ultra Test Strip See Rx Instructions .Route Qty: 100 0RF Rx Instructions: test 2 times daily glimepiride 4 mg tablet 4 mg PO QAM Qty: 90 2RF Rx Instructions: administer with breakfast (DME) lancets [OneTouch Delica Plus Lancet] 33 gauge misc See Rx Instructions .Route Qty: 100 0RF Rx Instructions: test 2 times daily metformin 1,000 mg tablet 1,000 mg PO BID Qty: 180 1RF triamcinolone acetonide 0.1 % cream 1 applic topical BID PRN (Reason: rash) Qty: 80 3RF aspirin 81 mg Capsule 81 mg PO QPM cyanocobalamin (vitamin B-12) [Vitamin B-12] 1,000 mcg Tablet 1,000 mcg PO QAM cholecalciferol (vitamin D3) [Vitamin D3] 25 mcg (1,000 unit) Capsule 25 mcg PO UD levothyroxine [Synthroid] 25 mcg tablet 25 mcg PO QAM simvastatin 20 mg tablet 20 mg PO QPM Rx Instructions: TAKE 1 TABLET BY MOUTH AT BEDTIME omeprazole 20 mg capsule,delayed release(DR/EC) 20 mg PO QAM Rx Instructions: TAKE 1 CAPSULE BY MOUTH DAILY lisinopril 5 mg tablet 5 mg PO QAM pioglitazone 30 mg tablet 30 mg PO QAM Discontinued docusate sodium [Stool Softener] 100 mg Tablet 100 mg PO BID No Action ondansetron HCl 4 mg tablet 4 mg PO Q6H PRN (Reason: nausea and vomiting) Qty: 56 0RF Discharge Orders: Discharge Order (Routine); Ordered 01/19/23 Ordered By: Bee Kessler/Other Patient Handouts: Low-Fiber Diet Admission Data Admit Date/Time: 01/12/23 13:11 Attending Provider: Jono Wilder Admit Provider: Jono Wilder Primary Care Provider: Elvia Sanchez Other Providers: Fahad Cooper ; Jazmine Malloy ; Matteo Gray ; Kirit Xiong ; Gallo Springer ; José Marshall ; Carlo Solis ; Kady Almendarez ; Brenda Suggs ; Jag Dobson ; India Silverman ; Dami Shultz ; Jayde Geiger ; Serge Wilder ; Jose Ruiz ; Joanne Mirza ; Juan M Vela ; Matteo Gutierrez ; Ora Burrows ; Giancarlo Casiano ; Wolfgang Toro ; Hawk Tompkins ; Carolyne Cherry ; Haylee Yanez ; Omar Khan ; Loren Person ; Thelma Verduzco ; Kirit He ; Gallo Combs Other Interventions: Discharge Summary Assessment (RN) Last Done: 01/19/23 14:37 Coding Level of Care Code 38137 IN/OBS DISCH 30 MIN/LESS Diagnoses S/P colon resection Z90.49
--- NOTE | 2023-01-21 07:00 | Coding Query ---
Your help is needed for correct coding of this account; please clarify if the patients Post-operative Ileus was: ( ) expected out of the surgery ( ) unexpected complication from the surgery (x )other please specify: this should go to the attending physician. Not the storage management consultant Thank you ASHVIN Palmer CCS
--- NOTE | 2023-01-30 14:17 | Coding Query ---
Your help is needed for correct coding of this account; please clarify if the patients Post-operative Ileus was: (x ) expected out of the surgery ( ) unexpected complication from the surgery ( )other please specify Thank you ASHVIN Palmer CCS
== END 2023-01-19 15:22 | disposition home or self-care (01) | DRG 330 ==
LOC: ASU 07:39 → 3N 13:11